=== PATIENT | male | born 1930 | race Caucasian/White ===

== ENCOUNTER 2020-02-28 00:05 | Inpatient (IN) | payer MEDICARE, BC ==
[~2020-02-28] VITALS: Ht 177.8 cm; Wt 149.7 kg
[2020-02-28] MEDS ORDERED: IV NORMAL SALINE 1000ML BAG 1,000 ML IV ONE ×2 (00:15)
--- NOTE | 2020-02-28 00:42 | RAD ---
Single view chest dated 02/28/2020. No comparison available. CLINICAL INDICATION: Shortness of breath. FINDINGS: Single upright portable exam performed. Heart size is moderately enlarged. Tortuosity of the thoracic aorta. Lungs are hypoinflated and there is patchy and linear opacity at both lung bases. No pleural effusion. No pneumothorax. IMPRESSION: 1. Patchy bibasilar opacity, atelectasis versus early pneumonia. 2. Cardiomegaly with tortuosity and ectasia of the thoracic aorta. Electronically signed by: Gurjit Garza MD (02/28/2020 12:40 AM) JANET
--- NOTE | 2020-02-28 01:02 | PHYS DOC ---
General Adult EDM: Chief Complaint: ALTERED MENTAL STATUS HPI: HPI: 89-year-old male past medical history significant for LE swelling (on lasix 40mg tid), COPD (former tobacco use), HTN, HLD, gerd, glaucoma, carotid stenosis (no cea), R eye blindness (s/p CRAO), OA, and myasthenia gravis (on azathioprine, dx 2016), presents to the ED brought in by EMS from home, concern for altered mental status. Patient lives with his son and [id number]. Son tested positive for Covid 11 days ago. [id number] is having Covid symptoms and was tested today, now awaiting results. Patient was saturating 90% on room air, required 3 L nasal cannula. Patient is alert to self, month, location but not year (states "forty, [age]"). Pt with no active complaints in ed. Hx limited due to mental status and hearing difficulties. EMS reports they were out at patient's house earlier in the day for an accidental fall in the bathroom, unsure if pt hit his head (found back propped up next to tub), w/superficial skin tears to left arm. Pt is a DNR code status. I spoke with pts' daughter, Aleta Randall on phone who provided most of the above information. Pts' last known well was yesterday. Pt was saying "I need a 38 and a 13," while making the sign of a cross. No known h/o enlarged aorta. Daughter reports no h/o intubations, not aware of any enlarged aorta. Last hospitalization was 2016 at [facility] when he was diagnosed with MG-why feeding tube was placed. Pt has chronic exertional dyspnea. Review of Systems: Review of Systems: Constitutional: Denies fever or chills, lack of taste/smell Eyes: Denies change in visual acuity or red eye HENT: Denies nasal congestion or sore throat. [] Respiratory: Denies cough or shortness of breath. [] Cardiovascular: Denies chest pain or edema. [] GI: Deniesnausea, vomiting, or diarrhea. [] : Denies dysuria or hematuria Musculoskeletal: Denies back pain or joint pain. [] Integument: Denies rash or crepitus Neurologic: Denies headache, neck stiffness, focal weakness or sensory changes. [] Endocrine: Denies polyuria or polydipsia. [] Psychiatric: Denies depression or anxiety. [] Heart Score: Risk Factors: Risk Factors: DM, Current or recent (<one month) smoker, HTN, HLP, family history of CAD, obesity. Risk Scores: Score 0 - 3: 2.5% MACE over next 6 weeks - Discharge Home Score 4 - 6: 20.3% MACE over next 6 weeks - Admit for Clinical Observation Score 7 - 10: 72.7% MACE over next 6 weeks - Early Invasive Strategies Current Medications: Current Medications Medications (Trade) Dose Ordered Sig/Nicola Start Time Stop Time Status Last Admin Dose Admin Sodium Chloride 1,000 ml @ 1,000 mls/hr 1X ONCE 02/28/20 00:15 02/28/20 01:14 Allergies: Allergies: Allergies Coded Allergies Type Severity Reaction Last Updated Verified Unable to Assess 02/28/20 No Physical Exam: PE: Constitutional: no acute distress, non-toxic appearance, very hard of hearing, afebrile HENT: Normocephalic, atraumatic, Eyes: EOMI, conjunctiva normal, no discharge. Neck: Normal range of motion, supple, Cardiovascular: S1/2 present, regular rhythm Lungs & Thorax: Speaking in full sentences, bilateral equal chest rise, no tachypnea or increased work of breathing, 96% on 3LNC Abdomen: soft, no tenderness, obese, G-tube in place Skin: Warm, dry, bl LE edema with venous stasis Back: No tenderness, no CVA tenderness. [] Extremities: no cyanosis, skin tears over left arm Neurologic: GCS14, alert to name, month, place not year, normal motor function, normal sensory function, no focal deficits noted. [] Psychologic: Affect normal, judgement normal, mood normal EKG: EKG: Sinus rhythm at 97 bpm, left axis deviation, OR 230, QTC 454, first-degree AV block, no T wave inversions, no ST elevations or ST depressions, inferior Q waves Radiology/Procedures: Radiology/Procedures: IMAGING REPORT Signed PATIENT: ALISTAIR EPPSOUNT: [id number] : 1930 LOCATION: ER AGE: 89 SEX: M EXAM STATUS: PRE ER ORD. PHYSICIAN: ZULAY POSADA DO REASON: soa PROCEDURE: PORTABLE CHEST 1V Single view chest dated 02/28/2020. No comparison available. CLINICAL INDICATION: Shortness of breath. FINDINGS: Single upright portable exam performed. Heart size is moderately enlarged. Tortuosity of the thoracic aorta. Lungs are hypoinflated and there is patchy and linear opacity at both lung bases. No pleural effusion. No pneumothorax. IMPRESSION: 1. Patchy bibasilar opacity, atelectasis versus early pneumonia. 2. Cardiomegaly with tortuosity and ectasia of the thoracic aorta. Electronically signed by: Gurjit Garza MD (02/28/2020 12:40 AM) JU[facility]ANETTE DICTATED and SIGNED BY: GURJIT GARZA MD DATE: 02/28/20 [id number] IMAGING REPORT Signed PATIENT: ALISTAIR EPPSOUNT: [id number] : 1930 LOCATION: ER AGE: 89 SEX: M EXAM STATUS: REG ER ORD. PHYSICIAN: ZULAY POSADA DO REASON: ams PROCEDURE: CT HEAD WO CONTRAST CT head without contrast dated 02/28/2020. No comparison available. CLINICAL INDICATION: Altered mental status. TECHNIQUE: Continues axial imaging the head was performed from skull base to vertex. No contrast administered. One or more of the following individualized dose reduction techniques were utilized for this examination: 1. Automated exposure control 2. Adjustment of the mA and/or kV according to patient size 3. Use of iterative reconstruction technique. FINDINGS: Ventricles and sulci are moderately prominent for age. No midline shift or mass effect. Moderate patchy low density in the deep/subcortical periventricular white matter. No hemorrhage or extra-axial collection. Posterior fossa and brainstem unremarkable. Mild mucosal thickening of the bilateral ethmoid air cells. The visualized paranasal sinuses and mastoid air cells are otherwise clear. No apparent calvarial abnormality. IMPRESSION: 1. No evidence of acute intracranial hemorrhage or mass. 2. Moderate chronic small vessel ischemic changes and atrophy. 3. Mild sinus disease. Electronically signed by: Gurjit Garza MD (02/28/2020 1:29 AM) [facility] DICTATED and SIGNED BY: GURJIT GARAZ MD DATE: 02/28/20 [id number] IMAGING REPORT Signed PATIENT: ALISTAIR EPPSOUNT: [id number] : 1930 LOCATION: ER AGE: 89 SEX: M EXAM STATUS: REG ER ORD. PHYSICIAN: ZULAY POSADA DO REASON: soa, r/o pe PROCEDURE: CT ANGIOGRAPHY CHEST CTA chest with contrast dated 02/28/2020. No comparison available. CLINICAL INDICATION: Shortness of breath. Possible pulmonary embolus. TECHNIQUE: Contiguous axial imaging the chest performed following the intravenous administration of intravenous Isovue-370. Study was performed as dedicated PE protocol with thin cut coronal MIPS 3-D reconstruction. One or more of the following individualized dose reduction techniques were utilized for this examination: 1. Automated exposure control 2. Adjustment of the mA and/or kV according to patient size 3. Use of iterative reconstruction technique FINDINGS: Contrast bolus is adequate. No evidence of central, lobar or segmental pulmonary embolus. Subsegmental branches are not well evaluated based on technique. Heart size is mildly enlarged. No pericardial effusion. Coronary artery calcifications. There is mild aneurysmal dilation of the ascending thoracic aorta measuring 4 cm transverse. No mediastinal, hilar or axillary lymphadenopathy. Thyroid gland unremarkable. Central airways are patent. There are irregular linear peripheral opacities throughout both lungs, basilar predominant. Intermixed patchy groundglass opacity bilaterally. No consolidation. No significant pleural effusion. No pneumothorax. Images of the upper abdomen are unremarkable. There are low-density foci at the upper pole of each kidney that are indeterminate but probably represent cysts. Percutaneous gastric tube in place. No acute bony abnormality. Multilevel spondylosis. IMPRESSION: 1. No evidence of central, lobar or segmental pulmonary embolus. 2. Prominent interstitial markings with intermixed groundglass opacity, nonspecific. This could be related to low-grade edema or interstitial fibrosis. Atypical infection considered less likely. 3. Coronary artery calcifications and mild aneurysmal dilation of the ascending thoracic aorta. Electronically signed by: Gurjit Garza MD (02/28/2020 2:40 AM) [facility] DICTATED and SIGNED BY: GURJIT GARZA MD DATE: 02/28/20 [id number] Course & Med Decision Making: Course & Med Decision Making Pertinent Labs and Imaging studies reviewed. (See chart for details) Concern for hypoxia in a male with multiple comorbidities, likely covid, test pending. Requiring NC. Influenza negative. Patient afebrile with no leukocytosis. Chest x-ray concerning for pneumonia. CTA showing ectatic thoracic aorta with no pulmonary emboli. Will admit for further medical management. Daughter agrees with this plan and aware he likely has covid, guarded condition. I have spoken with the patient and/or caregivers. I have explained the p atient's condition, diagnosis and treatment plan based on the information available to me at this time. I have answered the patient's and/or caregivers questions and answered any concerns. The patient and/or caregivers have as good an understanding of the patient's diagnosis, condition and treatment plan as can be expected at this point. The patient has been stabilized within the capability of the emergency department. The patient will be transported for further care and management or will be moved to an observation or inpatient service. I have communicated with the staff or medical practitioner taking over this patient's care. Selena Disclaimer: Selena Disclaimer: This electronic medical record was generated, in whole or in part, using a voice recognition dictation system. Departure Departure Impression: Primary Impression: AMS (altered mental status) Additional Impressions: Person under investigation for COVID-19 Acute respiratory failure with hypoxia CAP (community acquired pneumonia) Disposition: 09 ADMITTED INPT THIS HOSP Admitting Physician: SOURAV (Dr. Cortez) Condition: GUARDED Referrals: NO PCP (PCP) ZULAY POSADA DO Feb 28, 2020 01:02
[2020-02-28 01:10] LABS: BASO % 0 % (0-3); EOS % 0 % (0-3); HEMATOCRIT 42.4 % (39.0-53.0); HEMOGLOBIN 14.5 g/dL (13.0-17.5); LYMPH # 0.3 x10^3/uL (1.0-4.8); LYMPH % 5 % (24-48); MEAN CORPUSCULAR HEMOGLOBIN 30 pg (25-35); MEAN CORPUSCULAR HGB CONC 34 g/dL (31-37); MEAN CORPUSCULAR VOLUME 89 fL (79-100); MONO # 0.7 x10^3/uL (0.0-1.1); MONO % 11 % (0-9); NEUT # 5.5 x10^3/uL (1.8-7.7); NEUT % 84 % (31-73); PLATELET COUNT 167 x10^3/uL (140-400); RED BLOOD COUNT 4.78 x10^6/uL (4.30-5.70); RED CELL DISTRIBUTION WIDTH 16.5 % (11.5-14.5); WHITE BLOOD COUNT 6.6 x10^3/uL (4.0-11.0)
[2020-02-28] MEDS ORDERED: AZITHRMYCN 500MG IVPB FOR OMNI 250 ML IV ONE (01:15)
[2020-02-28] MEDS ORDERED: DEXAMETHASONE SOD PHOS 20 MG/5 ML VIAL. IV ONE (01:15)
[2020-02-28] MEDS ORDERED: cefTRIAXone IV Push 1 GM VIAL. IVP ONE (01:15)
[2020-02-28 01:25] LABS: INFLUENZA A PATIENT NEGATIVE (NEGATIVE); INFLUENZA B PATIENT NEGATIVE (NEGATIVE)
[2020-02-28 01:30] LABS: ALBUMIN 3.4 g/dL (3.4-5.0); ALBUMIN/GLOBULIN RATIO 0.8 (1.0-1.7); CALCIUM 8.5 mg/dL (8.5-10.1); CREATININE 1.1 mg/dL (0.7-1.3); GFR 63.2; POTASSIUM 3.4 mmol/L (3.5-5.1); TOTAL BILIRUBIN 0.5 mg/dL (0.2-1.0); TOTAL PROTEIN 7.5 g/dL (6.4-8.2)
--- NOTE | 2020-02-28 01:31 | RAD ---
CT head without contrast dated 02/28/2020. No comparison available. CLINICAL INDICATION: Altered mental status. TECHNIQUE: Continues axial imaging the head was performed from skull base to vertex. No contrast administered. One or more of the following individualized dose reduction techniques were utilized for this examinat ion: 1. Automated exposure control 2. Adjustment of the mA and/or kV according to patient size 3. Use of iterative reconstruction technique. FINDINGS: Ventricles and sulci are moderately prominent for age. No midline shift or mass effect. Moderate patc hy low density in the deep/subcortical periventricular white matter. No hemorrhage or extra-axial col lection. Posterior fossa and brainstem unremarkable. Mild mucosal thickening of the bilateral ethmoid air cells. The visualized paranasal sinuses and mast oid air cells are otherwise clear. No apparent calvarial abnormality. IMPRESSION: 1. No evidence of acute intracranial hemorrhage or mass. 2. Moderate chronic small vessel ischemic changes and atrophy. 3. Mild sinus disease. Electronically signed by: Gurjit Garza MD (02/28/2020 1:29 AM) ZORAIDA
[2020-02-28 01:32] LABS: PROTHROMBIN TIME PATIENT 14.2 SEC (11.7-14.0)
[2020-02-28 02:07] LABS: BASE EXCESS ABG 2 mmol/L (-3-3); HCO3 ABG 25 mmol/L (21-28); PCO2 ABG 37 mmHg (35-46); PO2 ABG 103 mmHg (65-108); SAT O2 ABG 98 % (92-99)
[2020-02-28 02:08] LABS: FIO2 ABG 36
[2020-02-28] MEDS ORDERED: CONTRAST GIVEN. MC PRN (02:15)
[2020-02-28] MEDS ORDERED: IOHEXOL 350 MG/ML 100 ML VIAL. IV ONE (02:15)
--- NOTE | 2020-02-28 02:42 | RAD ---
CTA chest with contrast dated 02/28/2020. No comparison available. CLINICAL INDICATION: Shortness of breath. Possible pulmonary embolus. TECHNIQUE: Contiguous axial imaging the chest performed following the intravenous administration of intravenous Isovue-370. Study was performed as dedicated PE protocol with thin cut coronal MIPS 3-D reconstructio n. One or more of the following individualized dose reduction techniques were utilized for this examinat ion: 1. Automated exposure control 2. Adjustment of the mA and/or kV according to patient size 3. Use of iterative reconstruction technique FINDINGS: Contrast bolus is adequate. No evidence of central, lobar or segmental pulmonary embolus. Subsegmenta l branches are not well evaluated based on technique. Heart size is mildly enlarged. No pericardial effusion. Coronary artery calcifications. There is mild aneurysmal dilation of the ascending thoracic aorta measuring 4 cm transverse. No mediastinal, hilar or axillary lymphadenopathy. Thyroid gland unremarkable. Central airways are patent. There are irregular linear peripheral opacities throughout both lungs, ba silar predominant. Intermixed patchy groundglass opacity bilaterally. No consolidation. No significan t pleural effusion. No pneumothorax. Images of the upper abdomen are unremarkable. There are low-density foci at the upper pole of each ki dney that are indeterminate but probably represent cysts. Percutaneous gastric tube in place. No acut e bony abnormality. Multilevel spondylosis. IMPRESSION: 1. No evidence of central, lobar or segmental pulmonary embolus. 2. Prominent interstitial markings with intermixed groundglass opacity, nonspecific. This could be re lated to low-grade edema or interstitial fibrosis. Atypical infection considered less likely. 3. Coronary artery calcifications and mild aneurysmal dilation of the ascending thoracic aorta. Electronically signed by: Gurjit Garza MD (02/28/2020 2:40 AM) [facility]
[2020-02-28] MEDS ORDERED: DIPH,PERTUSS(ACELL),TET VAC/PF 0.5 ML SYRINGE. VAX IM ONE (03:00)
[2020-02-28] MEDS ORDERED: ACETAMINOPHEN 325 MG TABLET. PO PRN ×3 (03:15→17:30)
[2020-02-28] MEDS ORDERED: ONDANSETRON PF 4 MG/2 ML VIAL. IV PRN (03:15)
[2020-02-28 04:47] LABS: % BANDS 11 % (0-9); % LYMPHS 4 % (24-48); % MONOS 4 % (0-10); % SEGS 81 % (35-66); PLT ESTIMATE ADEQUATE (ADEQUATE)
[2020-02-28] MEDS ORDERED: ONDANSETRON PF 4 MG/2 ML VIAL. IVP PRN ×2 (06:15→17:30)
[2020-02-28] MEDS ORDERED: MAGNESIUM HYDROXIDE 2,400 MG/30 ML ORAL.SUSP. PO PRN (06:15)
[2020-02-28] MEDS ORDERED: CALCIUM CARBONATE 500 MG TAB.CHEW PO PRN (06:15)
[2020-02-28] MEDS ORDERED: MAG HYDROX/ALUMINUM HYD/SIMETH 30 ML ORAL.SUSP PO PRN (06:15)
[2020-02-28] MEDS ORDERED: MORPHINE SULFATE 2 MG/ML VIAL. IV PRN (06:15)
[2020-02-28] MEDS ORDERED: BISACODYL 10 MG SUPP.RECT. PR PRN (06:15)
[2020-02-28] MEDS ORDERED: traMADol 50 MG TABLET PO PRN (06:15)
[2020-02-28] MEDS ORDERED: ZOLPIDEM 5 MG TABLET. PO PRN (06:15)
[2020-02-28] MEDS: ENOXAPARIN 40 MG/0.4 ML SYRINGE. SQ SCH (06:30)
[2020-02-28 08:59] VITALS: BP 178/86
--- NOTE | 2020-02-28 09:05 | PDOC1 ---
History and Physical Date of Service: DOS: DATE: 02/28/20 TIME: 09:00 Chief Complaint: Chief Complain: altered mental status History of Present Illness: HPI: 89-year-old male past medical history significant for LE swelling on lasix 40mg tid, COPD (former tobacco use), HTN, HLD, gerd, glaucoma, R eye blindness (s/p CRAO), OA, and myasthenia gravis (on azathioprine, dx 2016), presents to the ED brought in by EMS from home, concern for altered mental status. Patient lives with his son and umvxppjr-pf-rwj. Son tested positive for Covid 11 days ago. Tmwakytc-pa-zhg is having Covid symptoms and was tested today, now awaiting results. Patient was saturating 90% on room air, required 3 L nasal cannula. Patient is alert to self, month, location but not year. Pt with no active complaints in ed. Hx limited due to mental status and hearing difficulties. EMS reports they were out at patient's house earlier in the day for an accidental fall in the bathroom, unsure if pt hit his head (found back propped up next to tub), w/superficial skin tears to left arm. Pt is a DNR code status. Patient's daughter, Aleta Randall, provided most of the above information. Pts' last known well was yesterday. Pt was saying "I need a 38 and a 13," while making the sign of a cross. No known h/o enlarged aorta. Daughter reports no h/o intubations, not aware of any enlarged aorta. Last hospitalization was 2016 at [facility] when he was diagnosed with MG-that's why feeding tube was placed. Pt has chronic exertional dyspnea. Past Medical/Surgical History: PMH/PSH: PMHx :myasthenia gravis on azathioprine treatment COPD, hypertension, dyslipidemia, GERD, glaucoma, osteoarthritis Past surgical history: PEG tube placement Allergies: Allergies: Coded Allergies: No Known Drug Allergies (Unverified , 02/28/20) Family History: Family History: Reviewed with no relevant findings Social History: Social History: Former smoker Current Medications: Current Medications Current Medications Sodium Chloride 1,000 ml @ 1,000 mls/hr 1X ONCE IV Last administered on 02/28/20at 00:55; Start 02/28/20 at 00:15; Stop 02/28/20 at 01:14; Status DC Sodium Chloride 1,000 ml @ 1,000 mls/hr 1X ONCE IV Last administered on 02/28/20at 00:56; Start 02/28/20 at 00:15; Stop 02/28/20 at 01:14; Status DC Ceftriaxone Sodium (Rocephin) 1 gm 1X ONCE IVP Last administered on 02/28/20at 02:05; Start 02/28/20 at 01:15; Stop 02/28/20 at 01:16; Status DC Azithromycin 250 ml @ 250 mls/hr 1X ONCE IV Last administered on 02/28/20at 02:05; Start 02/28/20 at 01:15; Stop 02/28/20 at 02:14; Status DC Dexamethasone Sodium Phosphate (Decadron) 10 mg 1X ONCE IV Last administered on 02/28/20at 02:05; Start 02/28/20 at 01:15; Stop 02/28/20 at 01:16; Status DC Iohexol (Omnipaque 350 Mg/ml) 100 ml 1X ONCE IV Last administered on 02/28/20at 02:31; Start 02/28/20 at 02:15; Stop 02/28/20 at 02:16; Status DC Info (CONTRAST GIVEN -- Rx MONITORING) 1 each PRN DAILY PRN MC SEE COMMENTS; Start 02/28/20 at 02:15; Stop 03/01/20 at 02:14 Diphtheria/ Tetanus/Acell Pertussis (ADACEL TDap SYRINGE) 0.5 ml ONCE ONCE VAX IM Last administered on 02/28/20at 05:12; Start 02/28/20 at 03:00; Stop 02/28/20 at 03:01; Status DC Ondansetron HCl (Zofran) 4 mg PRN Q8HRS PRN IV NAUSEA/VOMITING; Start 02/28/20 at 03:15; Stop 02/29/20 at 03:14 Acetaminophen (Tylenol) 650 mg PRN Q4HRS PRN PO FEVER > 100.3'F; Start 02/28/20 at 03:15; Stop 02/28/20 at 06:36; Status DC Doxycycline Hyclate 100 mg/ Dextrose 100 ml @ 50 mls/hr Q12HR IV ; Start 02/29/20 at 09:00 Dexamethasone Sodium Phosphate (Decadron) 6 mg DAILY IVP ; Start 02/29/20 at 09:00 Ascorbic Acid (Vitamin C) 500 mg BID PO ; Start 02/28/20 at 09:00; Stop 03/13/20 at 08:59 Zinc Sulfate (Orazinc) 220 mg DAILY PO ; Start 02/28/20 at 09:00; Stop 03/13/20 at 08:59 Vitamin D (Vitamin D3) 5,000 unit DAILY PO ; Start 02/28/20 at 09:00; Stop 03/13/20 at 08:59 Ondansetron HCl (Zofran) 4 mg PRN Q6HRS PRN IVP NAUSEA/VOMITING; Start 02/28/20 at 06:15 Al Hydroxide/Mg Hydroxide (Mylanta Plus Xs) 30 ml PRN Q3HRS PRN PO HEARTBURN / GAS; Start 02/28/20 at 06:15 Calcium Carbonate/ Glycine (Tums) 500 mg PRN Q3HRS PRN PO UPSET STOMACH; Start 02/28/20 at 06:15 Zolpidem Tartrate (Ambien) 5 mg PRN QHS PRN PO INSOMNIA, MAY REPEAT IN 1HR; Start 02/28/20 at 06:15 Morphine Sulfate (Morphine Sulfate) 2 mg PRN Q1HR PRN IV PAIN; Start 02/28/20 at 06:15 Acetaminophen (Tylenol) 650 mg PRN Q6HRS PRN PO Headaches, Temp > 101.5F; Start 02/28/20 at 06:15 Magnesium Hydroxide (Milk Of Magnesia) 2,400 mg PRN Q12HR PRN PO CONSTIPATION; Start 02/28/20 at 06:15 Bisacodyl (Dulcolax Supp) 10 mg PRN DAILY PRN CA CONSTIPATION; Start 02/28/20 at 06:15 Enoxaparin Sodium (Lovenox 40mg Syringe) 40 mg Q24H SQ ; Start 02/28/20 at 06:30 Tramadol HCl (Ultram) 50 mg PRN Q6HRS PRN PO PAIN; Start 02/28/20 at 06:15 ROS: Review of Systems Review of System REVIEW OF SYSTEMS: GENERAL: Denies weakness SKIN: No bruising, hair changes or rashes. EYES: No blurred, double or loss of vision. NOSE AND THROAT: No history of nosebleeds, hoarseness or sore throat. HEART: No history of palpitations, chest pain or shortness of breath on exertion. LUNGS: Denies cough, hemoptysis, wheezing or shortness of breath. GASTROINTESTINAL: Denies changes in appetite, nausea, vomiting, diarrhea or constipation. GENITOURINARY: No history of frequency, urgency, hesitancy or nocturia. NEUROLOGIC: Denies history of numbness, tingling, or tremor. PSYCHIATRIC: No history of panic, anxiety or depression. ENDOCRINE: No history of heat or cold intolerance, polyuria or polydipsia. EXTREMITIES: Denies joint pain, pain on walking or stiffness. Physical Exam: Vital Signs: Vital Signs Date Time Temp Pulse Resp B/P (MAP) Pulse Ox O2 Delivery O2 Flow Rate FiO2 02/28/20 06:36 88 18 94 02/28/20 04:01 99.7 99.7 02/28/20 00:15 155/84 (107) Nasal Cannula 3.0 Physcial Exam: GEN: No apparent distress. Alert and oriented HEENT: Normal cephalic, atraumatic, external auditory canals are patent EYES: Extraocular muscles are intact, pupil are equally round and reactive to light and accommodation MUSCULOSKELETAL: Well developed , well nourished, good range of motion ENDOCRINE: No thyromegaly was palpated LYMPHATICS: No cervical chain or axillary nodes were noted HEMATOPOIETIC: No bruising NECK: Supple, no JVD, no thyromegaly was noted LUNGS: Clear to auscultation in all lung adame without rhonchi or wheezing HEART: RRR, S!, S2 present. Peripheral pulses intact, no obvious murmurs noted ABDOMEN: Soft, nontender. Positive bowel sounds, no organomegaly, normal bowel sounds EXTREMITIES: Without clubbing, cyanosis, or edema. Pedal pulses intact. Negative Homans sign NEUROLOGIC: Normal speech and tone. A&O x 3, moves all extremities, no obvious focal deficits PSYCHIATRIC: Normal affect, normal mood. Stable SKIN: No ulcerations or rashes, good skin turgor, no jaundice VASCULAR: Good capillary refill, neurovascular bundle appears to be intact Labs: Labs: Laboratory Tests Test 02/28/20 00:37 02/28/20 00:52 02/28/20 02:00 Influenza Type A Antigen Negative (NEGATIVE) Influenza Type B Antigen Negative (NEGATIVE) White Blood Count 6.6 x10^3/uL (4.0-11.0) Red Blood Count 4.78 x10^6/uL (4.30-5.70) Hemoglobin 14.5 g/dL (13.0-17.5) Hematocrit 42.4 % (39.0-53.0) Mean Corpuscular Volume 89 fL (79-100) Mean Corpuscular Hemoglobin 30 pg (25-35) Mean Corpuscular Hemoglobin Concent 34 g/dL (31-37) Red Cell Distribution Width 16.5 % (11.5-14.5) Platelet Count 167 x10^3/uL (140-400) Neutrophils (%) (Auto) 84 % (31-73) Lymphocytes (%) (Auto) 5 % (24-48) Monocytes (%) (Auto) 11 % (0-9) Eosinophils (%) (Auto) 0 % (0-3) Basophils (%) (Auto) 0 % (0-3) Neutrophils # (Auto) 5.5 x10^3/uL (1.8-7.7) Lymphocytes # (Auto) 0.3 x10^3/uL (1.0-4.8) Monocytes # (Auto) 0.7 x10^3/uL (0.0-1.1) Eosinophils # (Auto) 0.0 x10^3/uL (0.0-0.7) Basophils # (Auto) 0.0 x10^3/uL (0.0-0.2) Segmented Neutrophils % 81 % (35-66) Band Neutrophils % 11 % (0-9) Lymphocytes % 4 % (24-48) Monocytes % 4 % (0-10) Platelet Estimate Adequate (ADEQUATE) Prothrombin Time 14.2 SEC (11.7-14.0) Prothromb Time International Ratio 1.1 (0.8-1.1) Activated Partial Thromboplast Time 39 SEC (24-38) D-Dimer (Farheen) 2.73 ug/mlFEU (0.00-0.50) Sodium Level 131 mmol/L (136-145) Potassium Level 3.4 mmol/L (3.5-5.1) Chloride Level 91 mmol/L (98-107) Carbon Dioxide Level 28 mmol/L (21-32) Anion Gap 12 (6-14) Blood Urea Nitrogen 15 mg/dL (8-26) Creatinine 1.1 mg/dL (0.7-1.3) Estimated GFR (Cockcroft-Gault) 63.2 BUN/Creatinine Ratio 14 (6-20) Glucose Level 111 mg/dL (70-99) Lactic Acid Level 1.2 mmol/L (0.4-2.0) Calcium Level 8.5 mg/dL (8.5-10.1) Total Bilirubin 0.5 mg/dL (0.2-1.0) Aspartate Amino Transf (AST/SGOT) 29 U/L (15-37) Alanine Aminotransferase (ALT/SGPT) 26 U/L (16-63) Alkaline Phosphatase 110 U/L (46-116) Creatine Kinase 266 U/L (39-308) Troponin I Quantitative < 0.017 ng/mL (0.000-0.055) BO-Kce-Z-Type Natriuretic Peptide 362 pg/mL (0-449) Total Protein 7.5 g/dL (6.4-8.2) Albumin 3.4 g/dL (3.4-5.0) Albumin/Globulin Ratio 0.8 (1.0-1.7) O2 Saturation 98 % (92-99) Arterial Blood pH 7.45 (7.35-7.45) Arterial Blood pCO2 at Patient Temp 37 mmHg (35-46) Arterial Blood pO2 at Patient Temp 103 mmHg (65-108) Arterial Blood HCO3 25 mmol/L (21-28) Arterial Blood Base Excess 2 mmol/L (-3-3) FiO2 36 Laboratory Tests Test 02/28/20 00:37 02/28/20 00:52 02/28/20 02:00 Influenza Type A Antigen Negative (NEGATIVE) Influenza Type B Antigen Negative (NEGATIVE) White Blood Count 6.6 x10^3/uL (4.0-11.0) Red Blood Count 4.78 x10^6/uL (4.30-5.70) Hemoglobin 14.5 g/dL (13.0-17.5) Hematocrit 42.4 % (39.0-53.0) Mean Corpuscular Volume 89 fL (79-100) Mean Corpuscular Hemoglobin 30 pg (25-35) Mean Corpuscular Hemoglobin Concent 34 g/dL (31-37) Red Cell Distribution Width 16.5 % (11.5-14.5) Platelet Count 167 x10^3/uL (140-400) Neutrophils (%) (Auto) 84 % (31-73) Lymphocytes (%) (Auto) 5 % (24-48) Monocytes (%) (Auto) 11 % (0-9) Eosinophils (%) (Auto) 0 % (0-3) Basophils (%) (Auto) 0 % (0-3) Neutrophils # (Auto) 5.5 x10^3/uL (1.8-7.7) Lymphocytes # (Auto) 0.3 x10^3/uL (1.0-4.8) Monocytes # (Auto) 0.7 x10^3/uL (0.0-1.1) Eosinophils # (Auto) 0.0 x10^3/uL (0.0-0.7) Basophils # (Auto) 0.0 x10^3/uL (0.0-0.2) Segmented Neutrophils % 81 % (35-66) Band Neutrophils % 11 % (0-9) Lymphocytes % 4 % (24-48) Monocytes % 4 % (0-10) Platelet Estimate Adequate (ADEQUATE) Prothrombin Time 14.2 SEC (11.7-14.0) Prothromb Time International Ratio 1.1 (0.8-1.1) Activated Partial Thromboplast Time 39 SEC (24-38) D-Dimer (Farheen) 2.73 ug/mlFEU (0.00-0.50) Sodium Level 131 mmol/L (136-145) Potassium Level 3.4 mmol/L (3.5-5.1) Chloride Level 91 mmol/L (98-107) Carbon Dioxide Level 28 mmol/L (21-32) Anion Gap 12 (6-14) Blood Urea Nitrogen 15 mg/dL (8-26) Creatinine 1.1 mg/dL (0.7-1.3) Estimated GFR (Cockcroft-Gault) 63.2 BUN/Creatinine Ratio 14 (6-20) Glucose Level 111 mg/dL (70-99) Lactic Acid Level 1.2 mmol/L (0.4-2.0) Calcium Level 8.5 mg/dL (8.5-10.1) Total Bilirubin 0.5 mg/dL (0.2-1.0) Aspartate Amino Transf (AST/SGOT) 29 U/L (15-37) Alanine Aminotransferase (ALT/SGPT) 26 U/L (16-63) Alkaline Phosphatase 110 U/L (46-116) Creatine Kinase 266 U/L (39-308) Troponin I Quantitative < 0.017 ng/mL (0.000-0.055) HR-Egz-R-Type Natriuretic Peptide 362 pg/mL (0-449) Total Protein 7.5 g/dL (6.4-8.2) Albumin 3.4 g/dL (3.4-5.0) Albumin/Globulin Ratio 0.8 (1.0-1.7) O2 Saturation 98 % (92-99) Arterial Blood pH 7.45 (7.35-7.45) Arterial Blood pCO2 at Patient Temp 37 mmHg (35-46) Arterial Blood pO2 at Patient Temp 103 mmHg (65-108) Arterial Blood HCO3 25 mmol/L (21-28) Arterial Blood Base Excess 2 mmol/L (-3-3) FiO2 36 Images: Images CXR IMPRESSION: 1. Patchy bibasilar opacity, atelectasis versus early pneumonia. 2. Cardiomegaly with tortuosity and ectasia of the thoracic aorta. HEAD CT IMPRESSION: 1. No evidence of acute intracranial hemorrhage or mass. 2. Moderate chronic small vessel ischemic changes and atrophy. 3. Mild sinus disease. CHEST CTA IMPRESSION: 1. No evidence of central, lobar or segmental pulmonary embolus. 2. Prominent interstitial markings with intermixed groundglass opacity, nonspecific. This could be related to low-grade edema or interstitial fibrosis. Atypical infection considered less likely. 3. Coronary artery calcifications and mild aneurysmal dilation of the ascending thoracic aorta. Assessment/Plan Assessment/Plan Acute encephalopathy NOS PUI for COVID Acute hypoxic respiratory distress Hyponatremia, Hypokalemia Myasthenia Gravis No obvious centrally acting medications currently. No obvious signs of infection on physical exam. No fevers or nuchal rigidity. CT head is negative for acute etiology. No history or signs of trauma Consider dementia prevention protocol Provide adequate lighting (open curtains during the day, turn the lights off at night) Provide frequent personal contact with family, friends, and staff or TV Encourage early and frequent mobilization Rehab screening ordered IV Haldol as needed for agitation, consider sitter as needed if non-redirectable agitation Avoid physical restraints, catheters or tubes, and benzodiazepines Nutrition consult if there is malnutrition or concern for vitamin deficiencies Continue IV fluids Pulmonology consult for Covid PNA Lovenox for DVT prophylaxis [] GI prophylaxis ADA diet Full code Discussed with RN and SW Dispo Justifications for Admission Other Justification Respiratory failure with hypoxia, COVID-19 PNA [place] PETTIT MD Feb 28, 2020 09:05
[2020-02-28] MEDS: ASCORBIC ACID 500 MG TABLET PO SCH ×2 (10:31→22:32)
[2020-02-28] MEDS: ZINC SULFATE 220 MG CAPSULE. PO SCH (10:31)
[2020-02-28] MEDS: CHOLECALCIFEROL (VITAMIN D3) 5,000 UNIT CAPSULE PO SCH (10:31)
[2020-02-28 11:27] VITALS: BP 151/72
--- NOTE | 2020-02-28 11:42 | CONS ---
DATE OF CONSULTATION: PULMONARY CONSULTATION ATTENDING PHYSICIAN: Dr. Alex Cortez. REASON FOR CONSULTATION: Dyspnea, respiratory failure. HISTORY OF PRESENT ILLNESS: The patient is an 89-year-old male with a BMI of 47. He denies any tobacco history recently, but a former tobacco user. He was brought into the hospital with complaint of some altered mental status as well as dyspnea and hypoxia. The patient has history of myasthenia gravis for which he is on azathioprine. He lives with his son and [id number]-[id number]. Son tested positive for COVID 11 days ago. Opdvcxun-iz-ros was also having COVID symptoms and was tested today, results are not available. The patient is being currently on 3 liters nasal cannula. He does not appear to be in any obvious respiratory distress. He does have a cough. No chest pain, no nausea, vomiting, no diarrhea, no dysuria. No focal weakness. CT of the chest was reviewed by me. This was done for pulmonary embolism protocol. There was no evidence of any major pulmonary emboli. There is evidence of prominent interstitial markings with some mixed ground glass opacities. There is no old x-ray available for comparison. I have been asked to see him for further evaluation. COVID test is pending. PAST MEDICAL HISTORY: Significant for myasthenia gravis, on azathioprine, questionable COPD, history of obesity, GERD, glaucoma, osteoarthritis. PAST SURGICAL HISTORY: History of PEG tube placement. ALLERGIES: None. FAMILY HISTORY: Noncontributory to lungs. ALLERGIES: None. MEDICATIONS: Reviewed as listed in the MRAD including dexamethasone, doxycycline. Lovenox for DVT prophylaxis. PHYSICAL EXAMINATION: On examination, he is in no obvious respiratory distress. T-max of 99.7. Blood pressure 178/86, pulse ox 99%. Visual exam done due to COVID-19. He is obese and has trace pitting edema. LABORATORY DATA: Reviewed. Influenza screen is negative. BUN 15, creatinine 1.1. D-dimer 2.7. ABGs with a pO2 of 103 on 36% FiO2. IMPRESSION: 1. Acute hypoxic respiratory failure secondary to multifactorial etiologies and likely COVID-19 pneumonia. He lives with his son and [id number] and they are positive. Other differential diagnosis would include the possibility of congestive heart failure versus underlying interstitial lung disease related to Methotrexate. 2. Abnormal CT chest with bilateral interstitial infiltrates and some ground glass infiltrates. This is nonspecific, but in the setting of COVID-19 infection, this could be all related to COVID. Will benefit from a followup chest x-ray and CT chest post treatment. 3. No evidence of pulmonary embolism. 4. Questionable chronic obstructive pulmonary disease. 5. Morbid obesity, suspected obstructive sleep apnea and obesity hypoventilation syndrome. RECOMMENDATIONS: 1. Continue with present oxygen. Keep saturation 92 and above. 2. Dexamethasone. 3. Doxycycline. 4. Lovenox for DVT prophylaxis. 5. Follow up chest x-ray as needed clinically. 6. May benefit from a followup CT chest in 6-8 weeks. 7. The patient is currently on methotrexate. Possibility of methotrexate-induced interstitial lung disease cannot be ruled out. 8. Rule out COVID-[address]: LILLY/yola JOB#: [id number] / [id number] LAYO
[2020-02-28] MEDS ORDERED: BRIM5DRO4 OS (12:35)
[2020-02-28] MEDS ORDERED: FURO40TA4 PO (12:35)
[2020-02-28] MEDS ORDERED: ASPI-630 PO (12:35)
[2020-02-28] MEDS ORDERED: CARV6.2511 PO (12:35)
[2020-02-28] MEDS ORDERED: OMEG1CAP38 PO (12:35)
[2020-02-28] MEDS ORDERED: AZAT50TA20 PO (12:35)
[2020-02-28] MEDS ORDERED: SPIR100T4 PO (12:35)
[2020-02-28] MEDS ORDERED: LATA2.5D2 EACHEYE (12:35)
[2020-02-28] MEDS ORDERED: MULT-245 PO (12:35)
[2020-02-28] MEDS ORDERED: SIMV20TA18 PO (12:35)
[2020-02-28] MEDS ORDERED: AMLO-187 PO (12:35)
[2020-02-28] MEDS ORDERED: TIMO10DR5 OS (12:35)
[2020-02-28 15:14] VITALS: BP 204/76
[2020-02-28] MEDS ORDERED: DOCUSATE SODIUM 100 MG CAPSULE. PO PRN (17:30)
[2020-02-28] MEDS ORDERED: SENNOSIDES 8.6 MG TABLET PO PRN (17:30)
[2020-02-28] MEDS ORDERED: DEXTROSE 50% 25 GM / 50ML DISP.SYRIN. IV PRN (17:30)
[2020-02-28] MEDS ORDERED: ENOXAPARIN 40 MG/0.4 ML SYRINGE. SQ ONE (17:45)
[2020-02-28] MEDS: CARVEDILOL 6.25 MG TABLET. PO SCH (17:52)
[2020-02-28 19:00] VITALS: BP 166/74
[2020-02-28] MEDS: SIMVASTATIN 20 MG TABLET PO SCH (22:32)
[2020-02-28 23:00] VITALS: BP 173/77
[2020-02-29 03:00] VITALS: BP 170/81
[2020-02-29 05:42] LABS: BASO % 0 % (0-3); EOS % 0 % (0-3); HEMOGLOBIN 12.7 g/dL (13.0-17.5); LYMPH # 0.4 x10^3/uL (1.0-4.8); LYMPH % 5 % (24-48); MEAN CORPUSCULAR HEMOGLOBIN 30 pg (25-35); MEAN CORPUSCULAR HGB CONC 34 g/dL (31-37); MEAN CORPUSCULAR VOLUME 88 fL (79-100); MONO # 0.7 x10^3/uL (0.0-1.1); MONO % 9 % (0-9); NEUT # 6.6 x10^3/uL (1.8-7.7); NEUT % 85 % (31-73); PLATELET COUNT 150 x10^3/uL (140-400); RED BLOOD COUNT 4.22 x10^6/uL (4.30-5.70); WHITE BLOOD COUNT 7.7 x10^3/uL (4.0-11.0)
[2020-02-29 05:58] LABS: CALCIUM 8.4 mg/dL (8.5-10.1); CREATININE 0.9 mg/dL (0.7-1.3); GFR 79.6; MAGNESIUM 2.5 mg/dL (1.8-2.4); PHOSPHORUS 2.8 mg/dL (2.6-4.7); POTASSIUM 3.3 mmol/L (3.5-5.1)
[2020-02-29 07:00] VITALS: BP 174/81
[2020-02-29] MEDS: ENOXAPARIN 40 MG/0.4 ML SYRINGE. SQ SCH ×3 (07:12→20:42)
--- NOTE | 2020-02-29 08:25 | PDOC ---
PULMONARY PROGRESS NOTES DATE: 02/29/20 TIME: 08:24 Subjective no soa Vitals Vital Signs Date Time Temp Pulse Resp B/P (MAP) Pulse Ox O2 Delivery O2 Flow Rate FiO2 02/29/20 03:00 96.8 80 20 170/81 (110) 97 96.8 02/28/20 20:00 Nasal Cannula 4.0 General: Alert, No acute distress Lungs: Clear Cardiovascular: S1 Abdomen: Soft, Other (obese) Extremities: No Edema Skin: Warm Labs Laboratory Tests Test 02/28/20 00:37 02/28/20 00:52 02/28/20 02:00 02/29/20 04:30 Influenza Type A Antigen Negative (NEGATIVE) Influenza Type B Antigen Negative (NEGATIVE) White Blood Count 6.6 x10^3/uL (4.0-11.0) 7.7 x10^3/uL (4.0-11.0) Red Blood Count 4.78 x10^6/uL (4.30-5.70) 4.22 x10^6/uL (4.30-5.70) Hemoglobin 14.5 g/dL (13.0-17.5) 12.7 g/dL (13.0-17.5) Hematocrit 42.4 % (39.0-53.0) 37.0 % (39.0-53.0) Mean Corpuscular Volume 89 fL (79-100) 88 fL (79-100) Mean Corpuscular Hemoglobin 30 pg (25-35) 30 pg (25-35) Mean Corpuscular Hemoglobin Concent 34 g/dL (31-37) 34 g/dL (31-37) Red Cell Distribution Width 16.5 % (11.5-14.5) 16.0 % (11.5-14.5) Platelet Count 167 x10^3/uL (140-400) 150 x10^3/uL (140-400) Neutrophils (%) (Auto) 84 % (31-73) 85 % (31-73) Lymphocytes (%) (Auto) 5 % (24-48) 5 % (24-48) Monocytes (%) (Auto) 11 % (0-9) 9 % (0-9) Eosinophils (%) (Auto) 0 % (0-3) 0 % (0-3) Basophils (%) (Auto) 0 % (0-3) 0 % (0-3) Neutrophils # (Auto) 5.5 x10^3/uL (1.8-7.7) 6.6 x10^3/uL (1.8-7.7) Lymphocytes # (Auto) 0.3 x10^3/uL (1.0-4.8) 0.4 x10^3/uL (1.0-4.8) Monocytes # (Auto) 0.7 x10^3/uL (0.0-1.1) 0.7 x10^3/uL (0.0-1.1) Eosinophils # (Auto) 0.0 x10^3/uL (0.0-0.7) 0.0 x10^3/uL (0.0-0.7) Basophils # (Auto) 0.0 x10^3/uL (0.0-0.2) 0.0 x10^3/uL (0.0-0.2) Segmented Neutrophils % 81 % (35-66) Band Neutrophils % 11 % (0-9) Lymphocytes % 4 % (24-48) Monocytes % 4 % (0-10) Platelet Estimate Adequate (ADEQUATE) Prothrombin Time 14.2 SEC (11.7-14.0) Prothromb Time International Ratio 1.1 (0.8-1.1) Activated Partial Thromboplast Time 39 SEC (24-38) D-Dimer (Farheen) 2.73 ug/mlFEU (0.00-0.50) Sodium Level 131 mmol/L (136-145) 137 mmol/L (136-145) Potassium Level 3.4 mmol/L (3.5-5.1) 3.3 mmol/L (3.5-5.1) Chloride Level 91 mmol/L (98-107) 100 mmol/L (98-107) Carbon Dioxide Level 28 mmol/L (21-32) 29 mmol/L (21-32) Anion Gap 12 (6-14) 8 (6-14) Blood Urea Nitrogen 15 mg/dL (8-26) 14 mg/dL (8-26) Creatinine 1.1 mg/dL (0.7-1.3) 0.9 mg/dL (0.7-1.3) Estimated GFR (Cockcroft-Gault) 63.2 79.6 BUN/Creatinine Ratio 14 (6-20) Glucose Level 111 mg/dL (70-99) 115 mg/dL (70-99) Lactic Acid Level 1.2 mmol/L (0.4-2.0) Calcium Level 8.5 mg/dL (8.5-10.1) 8.4 mg/dL (8.5-10.1) Total Bilirubin 0.5 mg/dL (0.2-1.0) Aspartate Amino Transf (AST/SGOT) 29 U/L (15-37) Alanine Aminotransferase (ALT/SGPT) 26 U/L (16-63) Alkaline Phosphatase 110 U/L (46-116) Creatine Kinase 266 U/L (39-308) Troponin I Quantitative < 0.017 ng/mL (0.000-0.055) IT-Dbq-O-Type Natriuretic Peptide 362 pg/mL (0-449) Total Protein 7.5 g/dL (6.4-8.2) Albumin 3.4 g/dL (3.4-5.0) Albumin/Globulin Ratio 0.8 (1.0-1.7) O2 Saturation 98 % (92-99) Arterial Blood pH 7.45 (7.35-7.45) Arterial Blood pCO2 at Patient Temp 37 mmHg (35-46) Arterial Blood pO2 at Patient Temp 103 mmHg (65-108) Arterial Blood HCO3 25 mmol/L (21-28) Arterial Blood Base Excess 2 mmol/L (-3-3) FiO2 36 Phosphorus Level 2.8 mg/dL (2.6-4.7) Magnesium Level 2.5 mg/dL (1.8-2.4) Laboratory Tests Test 02/29/20 04:30 White Blood Count 7.7 x10^3/uL (4.0-11.0) Red Blood Count 4.22 x10^6/uL (4.30-5.70) Hemoglobin 12.7 g/dL (13.0-17.5) Hematocrit 37.0 % (39.0-53.0) Mean Corpuscular Volume 88 fL (79-100) Mean Corpuscular Hemoglobin 30 pg (25-35) Mean Corpuscular Hemoglobin Concent 34 g/dL (31-37) Red Cell Distribution Width 16.0 % (11.5-14.5) Platelet Count 150 x10^3/uL (140-400) Neutrophils (%) (Auto) 85 % (31-73) Lymphocytes (%) (Auto) 5 % (24-48) Monocytes (%) (Auto) 9 % (0-9) Eosinophils (%) (Auto) 0 % (0-3) Basophils (%) (Auto) 0 % (0-3) Neutrophils # (Auto) 6.6 x10^3/uL (1.8-7.7) Lymphocytes # (Auto) 0.4 x10^3/uL (1.0-4.8) Monocytes # (Auto) 0.7 x10^3/uL (0.0-1.1) Eosinophils # (Auto) 0.0 x10^3/uL (0.0-0.7) Basophils # (Auto) 0.0 x10^3/uL (0.0-0.2) Sodium Level 137 mmol/L (136-145) Potassium Level 3.3 mmol/L (3.5-5.1) Chloride Level 100 mmol/L (98-107) Carbon Dioxide Level 29 mmol/L (21-32) Anion Gap 8 (6-14) Blood Urea Nitrogen 14 mg/dL (8-26) Creatinine 0.9 mg/dL (0.7-1.3) Estimated GFR (Cockcroft-Gault) 79.6 Glucose Level 115 mg/dL (70-99) Calcium Level 8.4 mg/dL (8.5-10.1) Phosphorus Level 2.8 mg/dL (2.6-4.7) Magnesium Level 2.5 mg/dL (1.8-2.4) Medications Active Scripts Medications Dose Route/Sig Max Daily Dose Days Date Category Timoptic 0.5% (Timolol Maleate) 10 Ml Drops 1 Drop OS DAILY 30 02/28/20 Reported Spironolactone 100 Mg Tablet 0.5 Tab PO DAILY 02/28/20 Reported Simvastatin 20 Mg Tablet 1 Tab PO QHS 02/28/20 Reported Xalatan (Latanoprost) 2.5 Ml Drops 1 Drop EACHEYE QHS 02/28/20 Reported Viola 3 Fish Oil Softgel (Viola-3 Fatty Acids/Fish Oil) 1 Each Capsule.dr 1 Each PO DAILY 02/28/20 Reported Multi Vitamin Daily (Multivitamin) 1 Each Tablet 1 Tab PO DAILY 30 02/28/20 Reported Furosemide 40 Mg Tablet 3 Tab PO DAILY 02/28/20 Reported Carvedilol (Carvedilol) 6.25 Mg Tablet 6.25 Mg PO BIDWMEALS 02/28/20 Reported Brimonidine Tartrate 5 Ml Drops 1 Drop OS BID 02/28/20 Reported Imuran (Azathioprine) 50 Mg Tablet 3 Tab PO DAILY 30 02/28/20 Reported Aspirin 81 Mg Tab.chew 1 Tab PO DAILY 02/28/20 Reported Amlodipine Besylate 10 Mg Tablet 10 Mg PO DAILY 02/28/20 Reported Impression . IMPRESSION: 1. Acute hypoxic respiratory failure secondary to multifactorial etiologies and likely COVID-19 pneumonia. He lives with his son and [id number] and they are positive. Other differential diagnosis would include the possibility of congestive heart failure versus underlying interstitial lung disease related to Methotrexate. 2. Abnormal CT chest with bilateral interstitial infiltrates and some ground glass infiltrates. This is nonspecific, but in the setting of COVID-19 infection, this could be all related to COVID. Will benefit from a followup chest x-ray and CT chest post treatment. 3. No evidence of pulmonary embolism. 4. Questionable chronic obstructive pulmonary disease. 5. Morbid obesity, suspected obstructive sleep apnea and obesity hypoventilation syndrome. Plan . RECOMMENDATIONS: 1. Continue with present oxygen. Keep saturation 92 and above. 2. Dexamethasone. 3. Doxycycline. 4. Lovenox for DVT prophylaxis. 5. Follow up chest x-ray as needed clinically. 6. May benefit from a followup CT chest in 6-8 weeks. 7. The patient is currently on methotrexate. Possibility of methotrexate-induced interstitial lung disease cannot be ruled out. 8. Rule out COVID-19 IMER BECERRA MD Feb 29, 2020 08:25
[2020-02-29] MEDS: DOXYCYCLINE HYCLATE 100 MG in IV DEXTROSE 5% 100ML 100 ML IV SCH ×3 (09:00→20:24)
[2020-02-29] MEDS: DEXAMETHASONE SOD PHOS 4 MG/ML VIAL IVP SCH ×2 (09:00→10:21)
[2020-02-29] MEDS ORDERED: ENOXAPARIN 40 MG/0.4 ML SYRINGE. SQ SCH (09:00)
[2020-02-29] MEDS: ASPIRIN CHEWABLE 81 MG TABLET. PO SCH (10:19)
[2020-02-29] MEDS: ZINC SULFATE 220 MG CAPSULE. PO SCH (10:19)
[2020-02-29] MEDS: CHOLECALCIFEROL (VITAMIN D3) 5,000 UNIT CAPSULE PO SCH (10:19)
[2020-02-29] MEDS: amLODIPine BESYLATE 10 MG TABLET PO SCH (10:20)
[2020-02-29] MEDS: ASCORBIC ACID 500 MG TABLET PO SCH ×2 (10:20→20:25)
[2020-02-29] MEDS: azaTHIOprine 50 MG TABLET PO SCH (10:20)
[2020-02-29] MEDS: CARVEDILOL 6.25 MG TABLET. PO SCH ×2 (10:22→17:46)
[2020-02-29 10:44] VITALS: BP 145/61
[2020-02-29] MEDS: TIMOLOL 0.5% OPHTH SOLUTION 5ML BOTTLE. OS SCH (10:54)
--- NOTE | 2020-02-29 11:43 | NUR ---
The patient refused doxycycline and dexamethasone this morning. This nurse explained the indications of the medicines but he still refused. He stated that there's nothing wrong with him and his lungs are fine. He needs oxygen because he's a little short of breath. Notified Dr. Padron who spoke to the patient upon his rounds.
--- NOTE | 2020-02-29 11:46 | NUR ---
The patient is awake, alert x2, has episodes of confusion. He was verbally aggressive to the staff. He stated that he already said ten times to get rid of his water cup and nobody followed. He also said to this nurse that "you can only do one thing at a time?!" when he wanted extra blankets and cups of ice. This nurse explained to him that I'll give the medicines first then do the rest.
--- NOTE | 2020-02-29 12:49 | PDOC ---
[employer] [facility] PROGRESS NOTE Date of Service DOS: DATE: 02/29/20 TIME: 12:47 Chief Complaint Chief Complaint Acute encephalopathy NOS PUI for COVID Acute hypoxic respiratory distress Hyponatremia, Hypokalemia Myasthenia Gravis No obvious centrally acting medications currently. No obvious signs of infec tion on physical exam. No fevers or nuchal rigidity. CT head is negative for acute etiology. No history or signs of trauma Consider dementia prevention protocol Provide adequate lighting (open curtains during the day, turn the lights off at night) Provide frequent personal contact with family, friends, and staff or TV Encourage early and frequent mobilization Rehab screening ordered IV Haldol as needed for agitation, consider sitter as needed if non-redirectable agitation Avoid physical restraints, catheters or tubes, and benzodiazepines Nutrition consult if there is malnutrition or concern for vitamin deficiencies Continue IV fluids Pulmonology consult for Covid PNA Lovenox for DVT prophylaxis ADA diet Full code Discussed with RN and SW Dispo inpatient management as above. Pending discussion with family regarding palliative care versus aggressive management of comorbidities. History of Present Illness History of Present Illness 02/29/2020 No acute events overnight. Patient saturating 95% on 4 L nasal cannula. Fever of T-max of 100.6 F. Currently on doxycycline. Pending Covid test. Patient is currently refusing medications as of now because he thinks he does not need any of them. He says his home medication regimen has been fine. Will address CODE STATUS with family. Patient's chart, labs, images were reviewed and discussed with RN 89-year-old male past medical history significant for LE swelling on lasix 40mg tid, COPD (former tobacco use), HTN, HLD, gerd, glaucoma, R eye blindness (s/p CRAO), OA, and myasthenia gravis (on azathioprine, dx 2016), presents to the ED brought in by EMS from home, concern for altered mental status. Patient lives with his son and [id number]. Son tested positive for Covid 11 days ago. Dtgfrvrq-rz-ymj is having Covid symptoms and was tested today, now awaiting results. Patient was saturating 90% on room air, required 3 L nasal cannula. Patient is alert to self, month, location but not year. Pt with no active complaints in ed. Hx limited due to mental status and hearing difficulties. EMS reports they were out at patient's house earlier in the day for an accidental fall in the bathroom, unsure if pt hit his head (found back propped up next to tub), w/superficial skin tears to left arm. Pt is a DNR code status. Vitals/I&O Vitals/I&O: Vital Signs Date Time Temp Pulse Resp B/P (MAP) Pulse Ox O2 Delivery O2 Flow Rate FiO2 02/29/20 10:44 99.5 91 18 145/61 (89) 99.5 02/29/20 07:00 95 02/28/20 20:00 Nasal Cannula 4.0 I & O 02/28/20 02/28/20 02/29/20 15:00 23:00 07:00 Intake Total 140 ml 200 ml 240 ml Output Total 400 ml Balance 140 ml -200 ml 240 ml Physical Exam Lungs: Clear Labs Labs: Laboratory Tests Test 02/29/20 04:30 White Blood Count 7.7 x10^3/uL (4.0-11.0) Red Blood Count 4.22 x10^6/uL (4.30-5.70) Hemoglobin 12.7 g/dL (13.0-17.5) Hematocrit 37.0 % (39.0-53.0) Mean Corpuscular Volume 88 fL (79-100) Mean Corpuscular Hemoglobin 30 pg (25-35) Mean Corpuscular Hemoglobin Concent 34 g/dL (31-37) Red Cell Distribution Width 16.0 % (11.5-14.5) Platelet Count 150 x10^3/uL (140-400) Neutrophils (%) (Auto) 85 % (31-73) Lymphocytes (%) (Auto) 5 % (24-48) Monocytes (%) (Auto) 9 % (0-9) Eosinophils (%) (Auto) 0 % (0-3) Basophils (%) (Auto) 0 % (0-3) Neutrophils # (Auto) 6.6 x10^3/uL (1.8-7.7) Lymphocytes # (Auto) 0.4 x10^3/uL (1.0-4.8) Monocytes # (Auto) 0.7 x10^3/uL (0.0-1.1) Eosinophils # (Auto) 0.0 x10^3/uL (0.0-0.7) Basophils # (Auto) 0.0 x10^3/uL (0.0-0.2) Sodium Level 137 mmol/L (136-145) Potassium Level 3.3 mmol/L (3.5-5.1) Chloride Level 100 mmol/L (98-107) Carbon Dioxide Level 29 mmol/L (21-32) Anion Gap 8 (6-14) Blood Urea Nitrogen 14 mg/dL (8-26) Creatinine 0.9 mg/dL (0.7-1.3) Estimated GFR (Cockcroft-Gault) 79.6 Glucose Level 115 mg/dL (70-99) Calcium Level 8.4 mg/dL (8.5-10.1) Phosphorus Level 2.8 mg/dL (2.6-4.7) Magnesium Level 2.5 mg/dL (1.8-2.4) Assessment and Plan Assessmemt and Plan Problems Medical Problems: (1) Acute respiratory failure with hypoxia Status: Acute (2) CAP (community acquired pneumonia) Status: Acute (3) Person under investigation for COVID-19 Status: Acute Comment Review of Relevant I have reviewed the following items massimo (where applicable) has been applied. Medications: Current Medications Medications (Trade) Dose Ordered Sig/Nicola Route PRN Reason Start Time Stop Time Status Last Admin Dose Admin Amlodipine Besylate (Norvasc) 10 mg DAILY PO 02/29/20 09:00 02/29/20 10:20 Aspirin (Aspirin Chewable) 81 mg DAILY PO 02/29/20 09:00 02/29/20 10:19 Carvedilol (Coreg) 6.25 mg BIDWMEALS PO 02/28/20 18:30 02/29/20 10:22 Simvastatin (Zocor) 20 mg QHS PO 02/28/20 21:00 02/28/20 22:32 Timolol Maleate (Timoptic 0.5% [facility]) 1 drop DAILY OS 02/29/20 09:00 02/29/20 10:54 Azathioprine (Imuran) 150 mg DAILY PO 02/29/20 09:00 02/29/20 10:20 Enoxaparin Sodium (Lovenox 40mg Syringe) 40 mg Q24H SQ 02/29/20 09:00 02/29/20 10:21 Enoxaparin Sodium (Lovenox 40mg Syringe) 40 mg 1X ONCE SQ 02/28/20 17:45 02/28/20 17:46 DC 02/28/20 17:51 Justifications for Admission Other Justification Respiratory failure with hypoxia, COVID-19 PNA [place] PETTIT MD Feb 29, 2020 12:49
[2020-02-29 14:42] VITALS: BP 149/65
--- NOTE | 2020-02-29 16:40 | NUR ---
The patient was found sitting on the floor by the ANTHROPOLOGY DEPARTMENT CHAIR when she went in the room at 1530. This nurse went in the room and saw the patient on sitting position on the floor with his left hand supporting his weight. When asked, the patient denied pain or hitting his head. He's awake, alert, oriented x 3 and told this nurse that he tried to get out of his chair. Earlier PT worked with him and he was placed on the recliner. farm equipment mechanic apprentice and 2 other nurses came to help to put him back on the bed using the lift. VS BP139/67 HR92 RR 22 O2 sat 97% on 4 liters and repeat VS upon returning to bed were BP 146/70 HR 79 RR 20 O2 sat 95% on 4LPM. Dr. Padron, notified of the incident, order for a shoulder x-ray acknowledged. The patient's DPLAURA, Jaciel Lam updated at [id number].
[2020-02-29 19:00] VITALS: BP 152/86
[2020-02-29] MEDS: SIMVASTATIN 20 MG TABLET PO SCH (20:25)
[2020-02-29 23:00] VITALS: BP 163/81
[2020-03-01 03:00] VITALS: BP 192/88
[2020-03-01] MEDS: DOXYCYCLINE HYCLATE 100 MG in IV DEXTROSE 5% 100ML 100 ML IV SCH ×3 (06:55→20:26)
[2020-03-01 07:00] VITALS: BP 176/84
[2020-03-01] MEDS: ZINC SULFATE 220 MG CAPSULE. PO SCH (08:55)
[2020-03-01] MEDS: ASCORBIC ACID 500 MG TABLET PO SCH ×2 (08:55→20:25)
[2020-03-01] MEDS: CHOLECALCIFEROL (VITAMIN D3) 5,000 UNIT CAPSULE PO SCH (08:55)
[2020-03-01] MEDS: ENOXAPARIN 40 MG/0.4 ML SYRINGE. SQ SCH ×4 (08:56→22:24)
[2020-03-01] MEDS: ASPIRIN CHEWABLE 81 MG TABLET. PO SCH (08:56)
[2020-03-01] MEDS: azaTHIOprine 50 MG TABLET PO SCH (08:56)
[2020-03-01] MEDS: DEXAMETHASONE SOD PHOS 4 MG/ML VIAL IVP SCH (08:57)
[2020-03-01] MEDS: TIMOLOL 0.5% OPHTH SOLUTION 5ML BOTTLE. OS SCH (08:57)
[2020-03-01] MEDS: amLODIPine BESYLATE 10 MG TABLET PO SCH (09:01)
[2020-03-01] MEDS: CARVEDILOL 6.25 MG TABLET. PO SCH ×2 (09:02→17:26)
--- NOTE | 2020-03-01 09:58 | PDOC ---
PULMONARY PROGRESS NOTES DATE: 03/01/20 TIME: 09:57 Subjective no soa Vitals Vital Signs Date Time Temp Pulse Resp B/P (MAP) Pulse Ox O2 Delivery O2 Flow Rate FiO2 03/01/20 09:02 76 176/84 03/01/20 07:00 98.5 20 95 Nasal Cannula 98.5 02/29/20 20:15 4.0 General: Alert, No acute distress Lungs: Clear Cardiovascular: S1 Abdomen: Soft, Other (obese) Extremities: No Edema Skin: Warm Labs Laboratory Tests Test 02/29/20 04:30 02/29/20 08:06 White Blood Count 7.7 x10^3/uL (4.0-11.0) Red Blood Count 4.22 x10^6/uL (4.30-5.70) Hemoglobin 12.7 g/dL (13.0-17.5) Hematocrit 37.0 % (39.0-53.0) Mean Corpuscular Volume 88 fL (79-100) Mean Corpuscular Hemoglobin 30 pg (25-35) Mean Corpuscular Hemoglobin Concent 34 g/dL (31-37) Red Cell Distribution Width 16.0 % (11.5-14.5) Platelet Count 150 x10^3/uL (140-400) Neutrophils (%) (Auto) 85 % (31-73) Lymphocytes (%) (Auto) 5 % (24-48) Monocytes (%) (Auto) 9 % (0-9) Eosinophils (%) (Auto) 0 % (0-3) Basophils (%) (Auto) 0 % (0-3) Neutrophils # (Auto) 6.6 x10^3/uL (1.8-7.7) Lymphocytes # (Auto) 0.4 x10^3/uL (1.0-4.8) Monocytes # (Auto) 0.7 x10^3/uL (0.0-1.1) Eosinophils # (Auto) 0.0 x10^3/uL (0.0-0.7) Basophils # (Auto) 0.0 x10^3/uL (0.0-0.2) Sodium Level 137 mmol/L (136-145) Potassium Level 3.3 mmol/L (3.5-5.1) Chloride Level 100 mmol/L (98-107) Carbon Dioxide Level 29 mmol/L (21-32) Anion Gap 8 (6-14) Blood Urea Nitrogen 14 mg/dL (8-26) Creatinine 0.9 mg/dL (0.7-1.3) Estimated GFR (Cockcroft-Gault) 79.6 Glucose Level 115 mg/dL (70-99) Calcium Level 8.4 mg/dL (8.5-10.1) Phosphorus Level 2.8 mg/dL (2.6-4.7) Magnesium Level 2.5 mg/dL (1.8-2.4) Glucose (Fingerstick) 121 mg/dL (70-99) Medications Active Scripts Medications Dose Route/Sig Max Daily Dose Days Date Category Timoptic 0.5% (Timolol Maleate) 10 Ml Drops 1 Drop OS DAILY 30 02/28/20 Reported Spironolactone 100 Mg Tablet 0.5 Tab PO DAILY 02/28/20 Reported Simvastatin 20 Mg Tablet 1 Tab PO QHS 02/28/20 Reported Xalatan (Latanoprost) 2.5 Ml Drops 1 Drop EACHEYE QHS 02/28/20 Reported [place] 3 Fish Oil Softgel ([place]-3 Fatty Acids/Fish Oil) 1 Each Capsule.dr 1 Each PO DAILY 02/28/20 Reported Multi Vitamin Daily (Multivitamin) 1 Each Tablet 1 Tab PO DAILY 30 02/28/20 Reported Furosemide 40 Mg Tablet 3 Tab PO DAILY 02/28/20 Reported Carvedilol (Carvedilol) 6.25 Mg Tablet 6.25 Mg PO BIDWMEALS 02/28/20 Reported Brimonidine Tartrate 5 Ml Drops 1 Drop OS BID 02/28/20 Reported Imuran (Azathioprine) 50 Mg Tablet 3 Tab PO DAILY 30 02/28/20 Reported Aspirin 81 Mg Tab.chew 1 Tab PO DAILY 02/28/20 Reported Amlodipine Besylate 10 Mg Tablet 10 Mg PO DAILY 02/28/20 Reported Impression . IMPRESSION: 1. Acute hypoxic respiratory failure secondary to multifactorial etiologies and likely COVID-19 pneumonia. He lives with his son and [id number] and they are positive. Other differential diagnosis would include the possibility of congestive heart failure versus underlying interstitial lung disease related to Methotrexate. 2. Abnormal CT chest with bilateral interstitial infiltrates and some ground glass infiltrates. This is nonspecific, but in the setting of COVID-19 infection, this could be all related to COVID. Will benefit from a followup chest x-ray and CT chest post treatment. 3. No evidence of pulmonary embolism. 4. Questionable chronic obstructive pulmonary disease. 5. Morbid obesity, suspected obstructive sleep apnea and obesity hypoventilation syndrome. Plan . RECOMMENDATIONS: 1. Continue with present oxygen. Keep saturation 92 and above. 2. Dexamethasone. 3. Doxycycline. 4. Lovenox for DVT prophylaxis. 5. Follow up chest x-ray as needed clinically. 6. May benefit from a followup CT chest in 6-8 weeks. 7. The patient is currently on methotrexate. Possibility of methotrexate-induced interstitial lung disease cannot be ruled out. 8. repeat cxr Tuesday IMER BECERRA MD Mar 01, 2020 09:58
--- NOTE | 2020-03-01 11:01 | PDOC ---
[employer] PROGRESS NOTE Date of Service DOS: DATE: 03/01/20 TIME: 11:00 Chief Complaint Chief Complaint Acute encephalopathy NOS Covid infection Acute hypoxic respiratory distress Hyponatremia, Hypokalemia Myasthenia Gravis No obvious centrally acting medications currently. No obvious signs of inf ection on physical exam. No fevers or nuchal rigidity. CT head is negative for acute etiology. No history or signs of trauma Consider dementia prevention protocol Provide adequate lighting (open curtains during the day, turn the lights off at night) Provide frequent personal contact with family, friends, and staff or TV Encourage early and frequent mobilization Rehab screening ordered IV Haldol as needed for agitation, consider sitter as needed if non-redirectable agitation Avoid physical restraints, catheters or tubes, and benzodiazepines Nutrition consult if there is malnutrition or concern for vitamin deficiencies Continue IV fluids Pulmonology consult for Covid PNA Lovenox for DVT prophylaxis ADA diet Full code Discussed with RN and SW Dispo inpatient management as above. Pending discussion with family regarding palliative care versus aggressive management of comorbidities. History of Present Illness History of Present Illness 03/01/2020 No acute events overnight. Patient did have a fall during the day in which he states that he feels fine after that. There is no shoulder deformity and no x-r ay was taken. Patient has no complaints voiced at this time. Patient does refuse some treatments as he states that he he is not in control and that God makes all decisions for him at this time. I did speak with the patient's son about his current management and recent Covid diagnosis. They agree with resuming current care and patient is to remain on DNR/DNI status. Patient's c bartholomew, labs, images were reviewed and discussed with RN 02/29/2020 No acute events overnight. Patient saturating 95% on 4 L nasal cannula. Fever of T-max of 100.6 F. Currently on doxycycline. Pending Covid test. Patient is currently refusing medications as of now because he thinks he does not need any of them. He says his home medication regimen has been fine. Will address CODE STATUS with family. Patient's chart, labs, images were reviewed and discussed with RN 89-year-old male past medical history significant for LE swelling on lasix 40mg tid, COPD (former tobacco use), HTN, HLD, gerd, glaucoma, R eye blindness (s/p CRAO), OA, and myasthenia gravis (on azathioprine, dx 2016), presents to the ED brought in by EMS from home, concern for altered mental status. Patient lives with his son and [id number]. Son tested positive for Covid 11 days ago. Silkpbkd-wr-sra is having Covid symptoms and was tested today, now awaiting results. Patient was saturating 90% on room air, required 3 L nasal cannula. Patient is alert to self, month, location but not year. Pt with no active complaints in ed. Hx limited due to mental status and hearing difficulties. EMS reports they were out at patient's house earlier in the day for an accidental fall in the bathroom, unsure if pt hit his head (found back propped up next to tub), w/superficial skin tears to left arm. Pt is a DNR code status. Vitals/I&O Vitals/I&O: Vital Signs Date Time Temp Pulse Resp B/P (MAP) Pulse Ox O2 Delivery O2 Flow Rate FiO2 03/01/20 09:02 76 176/84 03/01/20 07:00 98.5 20 95 Nasal Cannula 98.5 02/29/20 20:15 4.0 I & O 02/29/20 02/29/20 03/01/20 15:00 23:00 07:00 Intake Total 50 ml 100 ml Output Total 500 ml Balance 50 ml -400 ml Physical Exam General: Alert, No acute distress Heart: Regular rate Lungs: Clear Assessment and Plan Assessmemt and Plan Problems Medical Problems: (1) Acute respiratory failure with hypoxia Status: Acute (2) CAP (community acquired pneumonia) Status: Acute (3) Person under investigation for COVID-19 Status: Acute Comment Review of Relevant I have reviewed the following items massimo (where applicable) has been applied. Justifications for Admission Other Justification Respiratory failure with hypoxia, COVID-19 PNA [place] PETTIT MD Mar 01, 2020 11:01
[2020-03-01 11:50] VITALS: BP 161/72
[2020-03-01 12:11] LABS: BASO % 0 % (0-3); EOS % 0 % (0-3); HEMATOCRIT 38.8 % (39.0-53.0); HEMOGLOBIN 12.7 g/dL (13.0-17.5); LYMPH # 0.1 x10^3/uL (1.0-4.8); LYMPH % 1 % (24-48); MEAN CORPUSCULAR HEMOGLOBIN 30 pg (25-35); MEAN CORPUSCULAR HGB CONC 33 g/dL (31-37); MEAN CORPUSCULAR VOLUME 90 fL (79-100); MONO # 0.5 x10^3/uL (0.0-1.1); MONO % 4 % (0-9); NEUT # 11.6 x10^3/uL (1.8-7.7); NEUT % 95 % (31-73); PLATELET COUNT 168 x10^3/uL (140-400); RED BLOOD COUNT 4.32 x10^6/uL (4.30-5.70); RED CELL DISTRIBUTION WIDTH 16.2 % (11.5-14.5); WHITE BLOOD COUNT 12.2 x10^3/uL (4.0-11.0)
[2020-03-01 12:16] LABS: CALCIUM 8.4 mg/dL (8.5-10.1); CREATININE 1.1 mg/dL (0.7-1.3); GFR 63.2; MAGNESIUM 2.5 mg/dL (1.8-2.4); POTASSIUM 3.6 mmol/L (3.5-5.1)
[2020-03-01 15:32] VITALS: BP 165/81
[2020-03-01 19:00] VITALS: BP 158/70
[2020-03-01] MEDS: SIMVASTATIN 20 MG TABLET PO SCH (20:25)
[2020-03-01 23:06] VITALS: BP 166/76
[2020-03-02 03:07] VITALS: BP 179/78
[2020-03-02 07:00] VITALS: BP 199/93
[2020-03-02] MEDS: azaTHIOprine 50 MG TABLET PO SCH (08:12)
[2020-03-02] MEDS: amLODIPine BESYLATE 10 MG TABLET PO SCH (08:13)
[2020-03-02] MEDS: CARVEDILOL 6.25 MG TABLET. PO SCH ×2 (08:13→16:13)
[2020-03-02] MEDS: ZINC SULFATE 220 MG CAPSULE. PO SCH (08:13)
[2020-03-02] MEDS: ASCORBIC ACID 500 MG TABLET PO SCH ×2 (08:13→20:26)
[2020-03-02] MEDS: ASPIRIN CHEWABLE 81 MG TABLET. PO SCH (08:13)
[2020-03-02] MEDS: CHOLECALCIFEROL (VITAMIN D3) 5,000 UNIT CAPSULE PO SCH (08:13)
[2020-03-02] MEDS: DEXAMETHASONE SOD PHOS 4 MG/ML VIAL IVP SCH (08:15)
[2020-03-02] MEDS: DOXYCYCLINE HYCLATE 100 MG in IV DEXTROSE 5% 100ML 100 ML IV SCH ×2 (08:18→20:25)
[2020-03-02] MEDS: TIMOLOL 0.5% OPHTH SOLUTION 5ML BOTTLE. OS SCH (08:46)
[2020-03-02] MEDS: ENOXAPARIN 40 MG/0.4 ML SYRINGE. SQ SCH ×2 (08:46→20:26)
[2020-03-02 11:00] VITALS: BP 155/81
--- NOTE | 2020-03-02 12:20 | PDOC ---
[employer] PROGRESS NOTE Date of Service DOS: DATE: 03/02/20 TIME: 12:19 Chief Complaint Chief Complaint Acute encephalopathy NOS Covid infection Acute hypoxic respiratory distress Hyponatremia, Hypokalemia Myasthenia Gravis Moderate dementia No obvious centrally acting medications currently. No obvious signs of infection on physical exam. No fevers or nuchal rigidity. CT head is negative for acute etiology. No history or signs of trauma Consider dementia prevention protocol Provide adequate lighting (open curtains during the day, turn the lights off at night) Provide frequent personal contact with family, friends, and staff or TV Encourage early and frequent mobilization Rehab screening ordered IV Haldol as needed for agitation, consider sitter as needed if non-redirectable agitation Avoid physical restraints, catheters or tubes, and benzodiazepines Nutrition consult if there is malnutrition or concern for vitamin deficiencies Continue IV fluids Pulmonology consult for Covid PNA Lovenox for DVT prophylaxis ADA diet Full code Discussed with RN and IVA Dispo inpatient management as above. Pending discussion with family regarding palliative care versus aggressive management of comorbidities. History of Present Illness History of Present Illness 03/02/2020 No major events overnight. Patient saturating 93% on 4 L nasal cannula. No complaints voiced at this time. He is still refusing Lovenox injections. Patient's chart, labs, images were reviewed and discussed with RN. IV remdesivir initiated today 03/01/2020 No acute events overnight. Patient did have a fall during the day in which he states that he feels fine after that. There is no shoulder deformity and no x- ray was taken. Patient has no complaints voiced at this time. Patient does refuse some treatments as he states that he he is not in control and that God makes all decisions for him at this time. I did speak with the patient's son about his current management and recent Covid diagnosis. They agree with resuming current care and patient is to remain on DNR/DNI status. Patient's chart, labs, images were reviewed and discussed with RN 02/29/2020 No acute events overnight. Patient saturating 95% on 4 L nasal cannula. Fever of T-max of 100.6 F. Currently on doxycycline. Pending Covid test. Patient is currently refusing medications as of now because he thinks he does not need any of them. He says his home medication regimen has been fine. Will address CODE STATUS with family. Patient's chart, labs, images were reviewed and discussed with RN 89-year-old male past medical history significant for LE swelling on lasix 40mg tid, COPD (former tobacco use), HTN, HLD, gerd, glaucoma, R eye blindness (s/p CRAO), OA, and myasthenia gravis (on azathioprine, dx 2016), presents to the ED brought in by EMS from home, concern for altered mental status. Patient lives with his son and ulsgvhcr-uv-ikq. Son tested positive for Covid 11 days ago. Lcafeyvc-mf-omj is having Covid symptoms and was tested today, now awaiting results. Patient was saturating 90% on room air, required 3 L nasal cannula. Patient is alert to self, month, location but not year. Pt with no active complaints in ed. Hx limited due to mental status and hearing difficulties. EMS reports they were out at patient's house earlier in the day for an accidental fall in the bathroom, unsure if pt hit his head (found back propped up next to tub), w/superficial skin tears to left arm. Pt is a DNR code status. Vitals/I&O Vitals/I&O: Vital Signs Date Time Temp Pulse Resp B/P (MAP) Pulse Ox O2 Delivery O2 Flow Rate FiO2 03/02/20 08:13 74 179/78 03/02/20 07:00 94.1 24 89 Nasal Cannula 4.0 94.1 I & O 03/01/20 03/01/20 03/02/20 15:00 23:00 07:00 Intake Total 500 ml 360 ml Output Total 550 ml 0 ml Balance 500 ml -190 ml 0 ml Physical Exam General: Alert, No acute distress Heart: Regular rate Lungs: Clear Assessment and Plan Assessmemt and Plan Problems Medical Problems: (1) Acute respiratory failure with hypoxia Status: Acute (2) CAP (community acquired pneumonia) Status: Acute (3) Person under investigation for COVID-19 Status: Acute Comment Review of Relevant I have reviewed the following items massimo (where applicable) has been applied. Justifications for Admission Other Justification Respiratory failure with hypoxia, COVID-19 PNA [place] PETTIT MD Mar 02, 2020 12:20
[2020-03-02 15:00] VITALS: BP 172/77
[2020-03-02] MEDS ORDERED: REMDESIVIR LOAD in IV NORMAL SALINE 250ML TV IV ONE (16:00)
[2020-03-02] MEDS: BENZONATATE 100 MG CAPSULE. PO PRN (17:50)
[2020-03-02 19:00] VITALS: BP 157/72
[2020-03-02] MEDS: SIMVASTATIN 20 MG TABLET PO SCH (20:25)
[2020-03-02 23:00] VITALS: BP 160/70
--- NOTE | 2020-03-02 23:05 | NUR ---
Pt's sats in mid-80's on 15L NC. Placed on 15L 100% non-rebreather; spO2 up to 92%, RR 34. Pt currently resting comfortably in chair. Will continue to monitor.
[2020-03-03 03:20] VITALS: BP 155/72
[2020-03-03 07:14] VITALS: BP 146/64
[2020-03-03] MEDS: ENOXAPARIN 40 MG/0.4 ML SYRINGE. SQ SCH ×2 (09:00→21:04)
[2020-03-03] MEDS: CHOLECALCIFEROL (VITAMIN D3) 5,000 UNIT CAPSULE PO SCH (09:41)
[2020-03-03] MEDS: amLODIPine BESYLATE 10 MG TABLET PO SCH (09:41)
[2020-03-03] MEDS: ZINC SULFATE 220 MG CAPSULE. PO SCH (09:41)
[2020-03-03] MEDS: ASPIRIN CHEWABLE 81 MG TABLET. PO SCH (09:41)
[2020-03-03] MEDS: ASCORBIC ACID 500 MG TABLET PO SCH ×2 (09:42→21:04)
[2020-03-03] MEDS: CARVEDILOL 6.25 MG TABLET. PO SCH ×2 (09:42→17:13)
[2020-03-03] MEDS: TIMOLOL 0.5% OPHTH SOLUTION 5ML BOTTLE. OS SCH (09:42)
[2020-03-03] MEDS: azaTHIOprine 50 MG TABLET PO SCH (09:42)
[2020-03-03] MEDS: DEXAMETHASONE SOD PHOS 4 MG/ML VIAL IVP SCH (09:43)
[2020-03-03] MEDS: DOXYCYCLINE HYCLATE 100 MG in IV DEXTROSE 5% 100ML 100 ML IV SCH ×2 (09:43→21:04)
[2020-03-03] MEDS ORDERED: FUROSEMIDE 20 MG/2 ML VIAL. IVP ONE (10:30)
--- NOTE | 2020-03-03 10:32 | PDOC ---
PULMONARY PROGRESS NOTES DATE: 03/03/20 TIME: 10:28 Subjective PT. has increased oxygen requirement, now on 100% NRB non productive cough Fever overnight Vitals Vital Signs Date Time Temp Pulse Resp B/P (MAP) Pulse Ox O2 Delivery O2 Flow Rate FiO2 03/03/20 09:42 77 146/64 03/03/20 07:14 97.8 18 90 NonRebreather Mask 97.8 03/02/20 20:20 4.0 Comments Pt. seen during covid-19 pandemic visual exam preformed RRR 100% NRB obese No rash or edema No accessory muscle use General: Lethargic Labs Laboratory Tests Test 03/01/20 11:30 White Blood Count 12.2 x10^3/uL (4.0-11.0) Red Blood Count 4.32 x10^6/uL (4.30-5.70) Hemoglobin 12.7 g/dL (13.0-17.5) Hematocrit 38.8 % (39.0-53.0) Mean Corpuscular Volume 90 fL (79-100) Mean Corpuscular Hemoglobin 30 pg (25-35) Mean Corpuscular Hemoglobin Concent 33 g/dL (31-37) Red Cell Distribution Width 16.2 % (11.5-14.5) Platelet Count 168 x10^3/uL (140-400) Neutrophils (%) (Auto) 95 % (31-73) Lymphocytes (%) (Auto) 1 % (24-48) Monocytes (%) (Auto) 4 % (0-9) Eosinophils (%) (Auto) 0 % (0-3) Basophils (%) (Auto) 0 % (0-3) Neutrophils # (Auto) 11.6 x10^3/uL (1.8-7.7) Lymphocytes # (Auto) 0.1 x10^3/uL (1.0-4.8) Monocytes # (Auto) 0.5 x10^3/uL (0.0-1.1) Eosinophils # (Auto) 0.0 x10^3/uL (0.0-0.7) Basophils # (Auto) 0.0 x10^3/uL (0.0-0.2) Sodium Level 135 mmol/L (136-145) Potassium Level 3.6 mmol/L (3.5-5.1) Chloride Level 98 mmol/L (98-107) Carbon Dioxide Level 28 mmol/L (21-32) Anion Gap 9 (6-14) Blood Urea Nitrogen 14 mg/dL (8-26) Creatinine 1.1 mg/dL (0.7-1.3) Estimated GFR (Cockcroft-Gault) 63.2 Glucose Level 169 mg/dL (70-99) Calcium Level 8.4 mg/dL (8.5-10.1) Magnesium Level 2.5 mg/dL (1.8-2.4) Medications Active Scripts Medications Dose Route/Sig Max Daily Dose Days Date Category Timoptic 0.5% (Timolol Maleate) 10 Ml Drops 1 Drop OS DAILY 30 02/28/20 Reported Spironolactone 100 Mg Tablet 0.5 Tab PO DAILY 02/28/20 Reported Simvastatin 20 Mg Tablet 1 Tab PO QHS 02/28/20 Reported Xalatan (Latanoprost) 2.5 Ml Drops 1 Drop EACHEYE QHS 02/28/20 Reported [place] 3 Fish Oil Softgel ([place]-3 Fatty Acids/Fish Oil) 1 Each Capsule.dr 1 Each PO DAILY 02/28/20 Reported Multi Vitamin Daily (Multivitamin) 1 Each Tablet 1 Tab PO DAILY 30 02/28/20 Reported Furosemide 40 Mg Tablet 3 Tab PO DAILY 02/28/20 Reported Carvedilol (Carvedilol) 6.25 Mg Tablet 6.25 Mg PO BIDWMEALS 02/28/20 Reported Brimonidine Tartrate 5 Ml Drops 1 Drop OS BID 02/28/20 Reported Imuran (Azathioprine) 50 Mg Tablet 3 Tab PO DAILY 30 02/28/20 Reported Aspirin 81 Mg Tab.chew 1 Tab PO DAILY 02/28/20 Reported Amlodipine Besylate 10 Mg Tablet 10 Mg PO DAILY 02/28/20 Reported Comments 03/03- CXR worsening Bilateral infiltrates Impression . IMPRESSION: 1. Acute hypoxic respiratory failure secondary to multifactorial etiologies including COVID-19 pneumonia. He lives with his son and [id number] and they are positive. Other differential diagnosis would include the possibility of congestive heart failure . Less likely underlying interstitial lung disease related to Methotrexate. 2. Abnormal CT chest with bilateral interstitial infiltrates and some ground glass infiltrates. This is nonspecific, but in the setting of COVID-19 infection, this could be all related to COVID. 3. No evidence of pulmonary embolism. 4. Questionable chronic obstructive pulmonary disease. 5. Morbid obesity, suspected obstructive sleep apnea and obesity hypoventilation syndrome. 6. COVID-19 positive Plan . Continue supplemental oxygen to keep sats above 92%, now on 100% NRB Follow CXR PRn, reviewed today worsening Bilateral infiltrates-- lasix X1 / suspect all due to COVID Continue Dexamethasone Continue full course of remdesivir Continue Doxycycline. May benefit from a followup CT chest in 6-8 weeks. The patient is currently on methotrexate. Possibility of methotrexate-induced interstitial lung disease less likely PT/OT DVT/GI PPX D/W RN and RT PT. is DNR IMER BECERRA MD Mar 03, 2020 10:32
[2020-03-03 11:18] VITALS: BP 134/65
--- NOTE | 2020-03-03 11:42 | RAD ---
XR CHEST 1V History: Reason: pna / Spl. Instructions: / History: Comparison: February 28, 2020 Findings: Increased bilateral mid and basilar consolidations. No pleural effusion. No pneumothorax. Cardiomegal y, unchanged. Impression: 1. Increased mid and bibasilar consolidations, may represent pneumonia or pulmonary edema. 2. Cardiomegaly, unchanged. Electronically signed by: Yasmani Christy DO (03/03/2020 11:39 AM) [id number]
--- NOTE | 2020-03-03 12:10 | PDOC ---
[facility] PROGRESS NOTE Date of Service DOS: DATE: 03/03/20 TIME: 12:08 Chief Complaint Chief Complaint Acute encephalopathy NOS Covid infection Acute hypoxic respiratory distressworsening Hyponatremia, Hypokalemia Myasthenia Gravis Moderate dementia No obvious centrally acting medications currently. No obvious signs of infection on physical exam. No fevers or nuchal rigidity. CT head is negative for acute etiology. No history or signs of trauma Consider dementia prevention protocol Provide adequate lighting (open curtains during the day, turn the lights off at night) Provide frequent personal contact with family, friends, and staff or TV Encourage early and frequent mobilization Rehab screening ordered IV Haldol as needed for agitation, consider sitter as needed if non-redirectable agitation Avoid physical restraints, catheters or tubes, and benzodiazepines Nutrition consult if there is malnutrition or concern for vitamin deficiencies Pulmonology consult for Covid PNA Continue with math plus protocol, IV steroids, IV Remdesivir and IV steroids Lovenox for DVT prophylaxis ADA diet Full code Discussed with RN and SW Dispo inpatient management as above. Pending discussion with family regarding palliative care versus aggressive management of comorbidities. History of Present Illness History of Present Illness 03/03/2020 No major events overnight. Patient is now 100% nonrebreather saturating 95%. Patient is DNR status. T-max of 99.6 F overnight. Does not appear to be more dyspneic. Working with physical therapy and sitting upright on commode. Patient's chart, labs, images were reviewed and discussed with RN. Chest X showing worsening bilateral infiltrates. Lasix 40 mg IV given x1. 03/02/2020 No major events overnight. Patient saturating 93% on 4 L nasal cannula. No complaints voiced at this time. He is still refusing Lovenox injections. Patient's chart, labs, images were reviewed and discussed with RN. IV remdesivir initiated today 03/01/2020 No acute events overnight. Patient did have a fall during the day in which he states that he feels fine after that. There is no shoulder deformity and no x- ray was taken. Patient has no complaints voiced at this time. Patient does refuse some treatments as he states that he he is not in control and that God makes all decisions for him at this time. I did speak with the patient's son about his current management and recent Covid diagnosis. They agree with resuming current care and patient is to remain on DNR/DNI status. Patient's chart, labs, images were reviewed and discussed with RN 02/29/2020 No acute events overnight. Patient saturating 95% on 4 L nasal cannula. Fever of T-max of 100.6 F. Currently on doxycycline. Pending Covid test. Patient is currently refusing medications as of now because he thinks he does not need any of them. He says his home medication regimen has been fine. Will address CODE STATUS with family. Patient's chart, labs, images were reviewed and discussed with RN 89-year-old male past medical history significant for LE swelling on lasix 40mg tid, COPD (former tobacco use), HTN, HLD, gerd, glaucoma, R eye blindness (s/p CRAO), OA, and myasthenia gravis (on azathioprine, dx 2016), presents to the ED brought in by EMS from home, concern for altered mental status. Patient lives with his son and [id number]. Son tested positive for Covid 11 days ago. Xvxlbwoa-[id number] is having Covid symptoms and was tested today, now awaiting results. Patient was saturating 90% on room air, required 3 L nasal cannula. Patient is alert to self, month, location but not year. Pt with no active complaints in ed. Hx limited due to mental status and hearing difficulties. EMS reports they were out at patient's house earlier in the day for an accidental fall in the bathroom, unsure if pt hit his head (found back propped up next to tub), w/superficial skin tears to left arm. Pt is a DNR code status. Vitals/I&O Vitals/I&O: Vital Signs Date Time Temp Pulse Resp B/P (MAP) Pulse Ox O2 Delivery O2 Flow Rate FiO2 03/03/20 11:18 97.5 72 18 134/65 (88) 93 NonRebreather Mask 15.0 97.5 I & O 03/02/20 03/02/20 03/03/20 15:00 23:00 07:00 Output Total 600 ml 0 ml Balance -600 ml 0 ml Physical Exam General: Alert, No acute distress Heart: Regular rate Assessment and Plan Assessmemt and Plan Problems Medical Problems: (1) Acute respiratory failure with hypoxia Status: Acute (2) CAP (community acquired pneumonia) Status: Acute (3) Person under investigation for COVID-19 Status: Acute Comment Review of Relevant I have reviewed the following items massimo (where applicable) has been applied. Medications: Current Medications Medications (Trade) Dose Ordered Sig/Nicola Route PRN Reason Start Time Stop Time Status Last Admin Dose Admin Remdesivir 200 mg/ Sodium Chloride 210 ml @ 210 mls/hr 1X ONCE IV 03/02/20 16:00 03/02/20 16:59 DC 03/02/20 16:08 Benzonatate (Tessalon Perle) 100 mg PRN Q6HRS PRN PO COUGH 03/02/20 17:45 03/02/20 17:50 Furosemide (Lasix) 20 mg 1X ONCE IVP 03/03/20 10:30 03/03/20 10:31 DC 03/03/20 10:54 Justifications for Admission Other Justification Respiratory failure with hypoxia, COVID-19 PNA [place] PETTIT MD Mar 03, 2020 12:10
[2020-03-03 15:08] LABS: BASO % 0 % (0-3); EOS % 0 % (0-3); HEMATOCRIT 37.1 % (39.0-53.0); HEMOGLOBIN 12.2 g/dL (13.0-17.5); LYMPH # 0.1 x10^3/uL (1.0-4.8); LYMPH % 1 % (24-48); MEAN CORPUSCULAR HEMOGLOBIN 29 pg (25-35); MEAN CORPUSCULAR HGB CONC 33 g/dL (31-37); MEAN CORPUSCULAR VOLUME 89 fL (79-100); MONO # 0.6 x10^3/uL (0.0-1.1); MONO % 4 % (0-9); NEUT # 12.1 x10^3/uL (1.8-7.7); NEUT % 95 % (31-73); PLATELET COUNT 199 x10^3/uL (140-400); RED BLOOD COUNT 4.19 x10^6/uL (4.30-5.70); RED CELL DISTRIBUTION WIDTH 16.2 % (11.5-14.5); WHITE BLOOD COUNT 12.8 x10^3/uL (4.0-11.0)
[2020-03-03 15:18] VITALS: BP 158/69
[2020-03-03 15:32] LABS: CALCIUM 8.7 mg/dL (8.5-10.1); CREATININE 0.8 mg/dL (0.7-1.3); GFR 91.2; MAGNESIUM 2.5 mg/dL (1.8-2.4); POTASSIUM 3.5 mmol/L (3.5-5.1)
--- NOTE | 2020-03-03 16:29 | NUR ---
SW following for discharge planning. Spoke with RN and reviewed chart. Pt COVID positive. Pt on 15l non rebreather. Pt on IV Remdesivier. Possible hospice referral on 03/[address] Padron. SW following.
--- NOTE | 2020-03-03 16:47 | NUR ---
Wound/Ostomy Care Wound Type/Assessment: Pt seen per wound care consult. See wound assessment. Pt has large skin tear to the left upper arm. Wound cleansed, assessed, measured, and pictured. Treatment Recommendations/Plan: Recommendations for Xeroform gauze, ABD pad, and kerlix. Change every other day. Dressing applied. Education provided: Pt educated on dressing changes and pressure relief. Offloading surface/device: N/A Recommended Referrals/Tests: N/A Discharge Recommendations for dressings: Dressing instructions left in room. No other wounds noted. Pt in chair at this time and call light in reach. Wound care will follow up for reassessment on 03/12/19.
[2020-03-03] MEDS: REMDESIVIR 100mg in NORMAL SALINE 250ML X 4 DAYS IV SCH (17:13)
[2020-03-03] MEDS: BENZONATATE 100 MG CAPSULE. PO PRN (17:19)
[2020-03-03 19:00] VITALS: BP 138/71
[2020-03-03] MEDS: SIMVASTATIN 20 MG TABLET PO SCH (21:04)
[2020-03-03 23:00] VITALS: BP 152/71
[2020-03-04 03:00] VITALS: BP 146/62
[2020-03-04 07:19] VITALS: BP 153/72
[2020-03-04] MEDS: ASPIRIN CHEWABLE 81 MG TABLET. PO SCH (08:57)
[2020-03-04] MEDS: CHOLECALCIFEROL (VITAMIN D3) 5,000 UNIT CAPSULE PO SCH (08:57)
[2020-03-04] MEDS: ZINC SULFATE 220 MG CAPSULE. PO SCH (08:57)
[2020-03-04] MEDS: amLODIPine BESYLATE 10 MG TABLET PO SCH (08:58)
[2020-03-04] MEDS: CARVEDILOL 6.25 MG TABLET. PO SCH ×2 (08:58→17:05)
[2020-03-04] MEDS: BENZONATATE 100 MG CAPSULE. PO PRN (08:58)
[2020-03-04] MEDS: azaTHIOprine 50 MG TABLET PO SCH (08:58)
[2020-03-04] MEDS: ASCORBIC ACID 500 MG TABLET PO SCH (08:58)
[2020-03-04] MEDS: DEXAMETHASONE SOD PHOS 4 MG/ML VIAL IVP SCH (08:59)
[2020-03-04] MEDS: ENOXAPARIN 40 MG/0.4 ML SYRINGE. SQ SCH (09:00)
[2020-03-04] MEDS: TIMOLOL 0.5% OPHTH SOLUTION 5ML BOTTLE. OS SCH (09:00)
[2020-03-04] MEDS: DOXYCYCLINE HYCLATE 100 MG in IV DEXTROSE 5% 100ML 100 ML IV SCH ×2 (09:01→20:08)
[2020-03-04 11:16] VITALS: BP 157/73
--- NOTE | 2020-03-04 12:19 | PDOC ---
[facility] [facility] PROGRESS NOTE Date of Service DOS: DATE: 03/04/20 TIME: 12:18 Chief Complaint Chief Complaint Acute encephalopathy NOS Covid infection Acute hypoxic respiratory distressworsening Hyponatremia, Hypokalemia Myasthenia Gravis Moderate dementia Consider dementia prevention protocol Provide adequate lighting (open curtains during the day, turn the lights off at night) Provide frequent personal contact with family, friends, and staff or TV Encourage early and frequent mobilization Rehab screening ordered IV Haldol as needed for agitation, consider sitter as needed if non-redirectable agitation Avoid physical restraints, catheters or tubes, and benzodiazepines Nutrition consult if there is malnutrition or concern for vitamin deficiencies Pulmonology consult for Covid PNA Continue with math plus protocol, IV steroids, IV Remdesivir and IV steroids Lovenox for DVT prophylaxis Hospice consult ADA diet Full code Discussed with RN and SW Dispo inpatient management as above. Pending discussion with family regarding palliative care versus aggressive management of comorbidities. History of Present Illness History of Present Illness 02/24/2020 No major events overnight. Patient seen and examined bedside. Patient's clinical status is worsening. Patient's saturations 93% on 15 L nonrebreather. Will consult hospice and evaluate. Patient's chart, labs, images were reviewed and discussed with RN 03/03/2020 No major events overnight. Patient is now 100% nonrebreather saturating 95%. Patient is DNR status. T-max of 99.6 F overnight. Does not appear to be more dyspneic. Working with physical therapy and sitting upright on commode. Patient's chart, labs, images were reviewed and discussed with RN. Chest X showing worsening bilateral infiltrates. Lasix 40 mg IV given x1. 03/02/2020 No major events overnight. Patient saturating 93% on 4 L nasal cannula. No complaints voiced at this time. He is still refusing Lovenox injections. Patient's chart, labs, images were reviewed and discussed with RN. IV remdesivir initiated today 03/01/2020 No acute events overnight. Patient did have a fall during the day in which he states that he feels fine after that. There is no shoulder deformity and no x- ray was taken. Patient has no complaints voiced at this time. Patient does re fuse some treatments as he states that he he is not in control and that God makes all decisions for him at this time. I did speak with the patient's son about his current management and recent Covid diagnosis. They agree with resuming current care and patient is to remain on DNR/DNI status. Patient's chart, labs, images were reviewed and discussed with RN 02/29/2020 No acute events overnight. Patient saturating 95% on 4 L nasal cannula. Fever of T-max of 100.6 F. Currently on doxycycline. Pending Covid test. Patient is currently refusing medications as of now because he thinks he does not need any of them. He says his home medication regimen has been fine. Will address CODE STATUS with family. Patient's chart, labs, images were reviewed and disc ussed with RN 89-year-old male past medical history significant for LE swelling on lasix 40mg tid, COPD (former tobacco use), HTN, HLD, gerd, glaucoma, R eye blindness (s/p CRAO), OA, and myasthenia gravis (on azathioprine, dx 2016), presents to the ED brought in by EMS from home, concern for altered mental status. Patient lives with his son and [id number]. Son tested positive for Covid 11 days ago. Bkeyzghm-[id number]-jox is having Covid symptoms and was tested today, now awaiting results. Patient was saturating 90% on room air, required 3 L nasal cannula. Patient is alert to self, month, location but not year. Pt with no active complaints in ed. Hx limited due to mental status and hearing difficulties. EMS reports they were out at patient's house earlier in the day for an accidental fall in the bathroom, unsure if pt hit his head (found back propped up next to tub), w/superficial skin tears to left arm. Pt is a DNR code status. Vitals/I&O Vitals/I&O: Vital Signs Date Time Temp Pulse Resp B/P (MAP) Pulse Ox O2 Delivery O2 Flow Rate FiO2 03/04/20 11:16 97.7 75 28 157/73 (101) 95 NonRebreather Mask 15.0 97.7 I & O 03/03/20 03/03/20 03/04/20 14:59 22:59 06:59 Intake Total 240 ml 100 ml 100 ml Output Total 350 ml Balance -110 ml 100 ml 100 ml Physical Exam General: Alert, No acute distress Heart: Regular rate Labs Labs: Laboratory Tests Test 03/03/20 14:35 03/03/20 15:00 White Blood Count 12.8 x10^3/uL (4.0-11.0) Red Blood Count 4.19 x10^6/uL (4.30-5.70) Hemoglobin 12.2 g/dL (13.0-17.5) Hematocrit 37.1 % (39.0-53.0) Mean Corpuscular Volume 89 fL (79-100) Mean Corpuscular Hemoglobin 29 pg (25-35) Mean Corpuscular Hemoglobin Concent 33 g/dL (31-37) Red Cell Distribution Width 16.2 % (11.5-14.5) Platelet Count 199 x10^3/uL (140-400) Neutrophils (%) (Auto) 95 % (31-73) Lymphocytes (%) (Auto) 1 % (24-48) Monocytes (%) (Auto) 4 % (0-9) Eosinophils (%) (Auto) 0 % (0-3) Basophils (%) (Auto) 0 % (0-3) Neutrophils # (Auto) 12.1 x10^3/uL (1.8-7.7) Lymphocytes # (Auto) 0.1 x10^3/uL (1.0-4.8) Monocytes # (Auto) 0.6 x10^3/uL (0.0-1.1) Eosinophils # (Auto) 0.0 x10^3/uL (0.0-0.7) Basophils # (Auto) 0.0 x10^3/uL (0.0-0.2) Sodium Level 134 mmol/L (136-145) Potassium Level 3.5 mmol/L (3.5-5.1) Chloride Level 95 mmol/L (98-107) Carbon Dioxide Level 29 mmol/L (21-32) Anion Gap 10 (6-14) Blood Urea Nitrogen 19 mg/dL (8-26) Creatinine 0.8 mg/dL (0.7-1.3) Estimated GFR (Cockcroft-Gault) 91.2 Glucose Level 137 mg/dL (70-99) Calcium Level 8.7 mg/dL (8.5-10.1) Magnesium Level 2.5 mg/dL (1.8-2.4) Assessment and Plan Assessmemt and Plan Problems Medical Problems: (1) Acute respiratory failure with hypoxia Status: Acute (2) CAP (community acquired pneumonia) Status: Acute (3) Person under investigation for COVID-19 Status: Acute Comment Review of Relevant I have reviewed the following items massimo (where applicable) has been applied. Medications: Current Medications Medications (Trade) Dose Ordered Sig/Nicola Route PRN Reason Start Time Stop Time Status Last Admin Dose Admin Remdesivir 100 mg/ Sodium Chloride 230 ml @ 460 mls/hr Q24H IV 03/03/20 16:00 03/06/20 16:29 03/03/20 17:13 Justifications for Admission Other Justification Respiratory failure with hypoxia, COVID-19 PNA V[place] PETTIT MD Mar 04, 2020 12:19
--- NOTE | 2020-03-04 13:28 | NUR ---
SW following for discharge planning. Spoke with RN and reviewed chart. Spoke with Dr. Padron who would like pt to be evaluated for hospice if family is agreeable. Spoke with son who is POA for HC and he and his sister are agreeable. SW phoned and faxed referral to [facility] for GIP evaluation as family stated no preference in provider. Patient choice of vendor form completed. SW available as needed. Addendum: 03/05/20 at 0914 by DRAGAN HAMMOND SW pt . No additional SW needs.
--- NOTE | 2020-03-04 14:11 | NUR ---
Pt was offered a bed bath but is refusing at this time. He stated, "not today". Pt was encouraged but stated he "doesn't feel like it" and "I want to rest". Will continue to encourage.
--- NOTE | 2020-03-04 14:50 | NUR ---
Dr. Edwards on floor after seeing pt. Per Dr. Edwards, it is ok to not have IV access as he has poor venous access and pt does not want another IV. He also stated to stop the remdesivir. Dr. Edwards will change pt medications to PO.
[2020-03-04 15:17] VITALS: BP 162/71
--- NOTE | 2020-03-04 15:23 | PDOC ---
PULMONARY PROGRESS NOTES DATE: 03/04/20 TIME: 15:20 Subjective Patient upset, has poor IV access. Is not more short of air. Vitals Vital Signs Date Time Temp Pulse Resp B/P (MAP) Pulse Ox O2 Delivery O2 Flow Rate FiO2 03/04/20 11:16 97.7 75 28 157/73 (101) 95 NonRebreather Mask 15.0 97.7 Comments Pt. seen during pandemic visual exam preformed RRR 100% NRB obese No rash or edema No accessory muscle use Labs Laboratory Tests Test 03/03/20 14:35 03/03/20 15:00 White Blood Count 12.8 x10^3/uL (4.0-11.0) Red Blood Count 4.19 x10^6/uL (4.30-5.70) Hemoglobin 12.2 g/dL (13.0-17.5) Hematocrit 37.1 % (39.0-53.0) Mean Corpuscular Volume 89 fL (79-100) Mean Corpuscular Hemoglobin 29 pg (25-35) Mean Corpuscular Hemoglobin Concent 33 g/dL (31-37) Red Cell Distribution Width 16.2 % (11.5-14.5) Platelet Count 199 x10^3/uL (140-400) Neutrophils (%) (Auto) 95 % (31-73) Lymphocytes (%) (Auto) 1 % (24-48) Monocytes (%) (Auto) 4 % (0-9) Eosinophils (%) (Auto) 0 % (0-3) Basophils (%) (Auto) 0 % (0-3) Neutrophils # (Auto) 12.1 x10^3/uL (1.8-7.7) Lymphocytes # (Auto) 0.1 x10^3/uL (1.0-4.8) Monocytes # (Auto) 0.6 x10^3/uL (0.0-1.1) Eosinophils # (Auto) 0.0 x10^3/uL (0.0-0.7) Basophils # (Auto) 0.0 x10^3/uL (0.0-0.2) Sodium Level 134 mmol/L (136-145) Potassium Level 3.5 mmol/L (3.5-5.1) Chloride Level 95 mmol/L (98-107) Carbon Dioxide Level 29 mmol/L (21-32) Anion Gap 10 (6-14) Blood Urea Nitrogen 19 mg/dL (8-26) Creatinine 0.8 mg/dL (0.7-1.3) Estimated GFR (Cockcroft-Gault) 91.2 Glucose Level 137 mg/dL (70-99) Calcium Level 8.7 mg/dL (8.5-10.1) Magnesium Level 2.5 mg/dL (1.8-2.4) Medications Active Scripts Medications Dose Route/Sig Max Daily Dose Days Date Category Timoptic 0.5% (Timolol Maleate) 10 Ml Drops 1 Drop OS DAILY 30 02/28/20 Reported Spironolactone 100 Mg Tablet 0.5 Tab PO DAILY 02/28/20 Reported Simvastatin 20 Mg Tablet 1 Tab PO QHS 02/28/20 Reported Xalatan (Latanoprost) 2.5 Ml Drops 1 Drop EACHEYE QHS 02/28/20 Reported [place] 3 Fish Oil Softgel ([place]-3 Fatty Acids/Fish Oil) 1 Each Capsule.dr 1 Each PO DAILY 02/28/20 Reported Multi Vitamin Daily (Multivitamin) 1 Each Tablet 1 Tab PO DAILY 30 02/28/20 Reported Furosemide 40 Mg Tablet 3 Tab PO DAILY 02/28/20 Reported Carvedilol (Carvedilol) 6.25 Mg Tablet 6.25 Mg PO BIDWMEALS 02/28/20 Reported Brimonidine Tartrate 5 Ml Drops 1 Drop OS BID 02/28/20 Reported Imuran (Azathioprine) 50 Mg Tablet 3 Tab PO DAILY 30 02/28/20 Reported Aspirin 81 Mg Tab.chew 1 Tab PO DAILY 02/28/20 Reported Amlodipine Besylate 10 Mg Tablet 10 Mg PO DAILY 02/28/20 Reported Comments 03/03- CXR worsening Bilateral infiltrates Impression . IMPRESSION: 1. Acute hypoxic respiratory failure secondary to multifactorial etiologies including COVID-19 pneumonia. He lives with his son and [id number] and they are positive. Other differential diagnosis would include the possibility of congestive heart failure . Less likely underlying interstitial lung disease rela tameka to Methotrexate. 2. Abnormal CT chest with bilateral interstitial infiltrates and some ground glass infiltrates. This is nonspecific, but in the setting of COVID-19 infection, this could be all related to COVID. 3. No evidence of pulmonary embolism. 4. Questionable chronic obstructive pulmonary disease. 5. Morbid obesity, suspected obstructive sleep apnea and obesity hypoventilation syndrome. 6. COVID-19 positive Plan . Patient feels slightly better, decrease oxygen as tolerated Switch to oral medications. Discussed with family consumer scientist discussion on possible hospice. Follow CXR PRn, reviewed today worsening Bilateral infiltrates-- lasix X1 / suspect all due to COVID Continue Dexamethasone Continue full course of remdesivir, patient with no IV site. We will proceed with discontinuing remdesivir, Continue Doxycycline. The patient is currently on methotrexate. Possibility of methotrexate-induced interstitial lung disease less likely PT/OT DVT/GI PPX D/W RN and RT PT. is DNR JANEEN QUINTERO MD Mar 04, 2020 15:23
[2020-03-04] MEDS: REMDESIVIR 100mg in NORMAL SALINE 250ML X 4 DAYS IV SCH (16:00)
[2020-03-04 19:00] VITALS: BP 130/64
--- NOTE | 2020-03-05 00:15 | NUR ---
Pt assessed during the noc approximately 1944. Pt sitting in recliner with legs down. Pt states "so glad to see you guys and happy you are taking care of me tonight". Thanked pt and informed of deep breathing and relaxing tonight. Pt verbalized understanding. Pt O2 saturation above 95%. Pt currently on nonrebreather 15L and nasal cannula 5L to keep saturations above 90%. However after leaving room and attempting to get medications ready. Informed from Charge Nurse of pt rhythm currently Vfib/Vtach on monitor. Entered room immediately and noted pt sitting in recliner however not responding. Pt currently no HR noted after listening however pt still Vfib on monitor. Continued to stay with pt until Asystole noted. Pt transferred back to bed with goyo lift and assist x3. Pt cleansed and linens changed for possible visitors. Pt pronounced by 2 Nurses 03/04/20 at 2039. Called son Jaciel however no one able to come see pt since family 85 miles away. Attempted to get information however son states they do not know at this time. Son called back later and states still do not know however will notify someone in am. Informed to call Security or if unable able to call this floor and will get information to the right person. Son verbalized understanding and appreciated staff for the care of his father. No more questions or concerns at this time. Informed to call with questions.
== END 2020-03-04 20:40 | DRG 177 ==
LOC: ER 00:05 → ED HOLD 03:57 → 6 SOUTH 08:33
PROVIDERS: ADMIT Family Medicine; ATTEND Family Medicine
PROC: XW033E5 Introduction of Remdesivir Anti-infective into Peripheral Vein, Percutaneous Approach, New Technology Group 5 (ICD-10-PCS; principal; 2020-03-02)
DX: U07.1 COVID-19 (principal); J96.01 Acute respiratory failure with hypoxia; J12.89 Other viral pneumonia; E87.1 Hypo-osmolality and hyponatremia; G93.40 Encephalopathy, unspecified; J44.0 Chronic obstructive pulmonary disease with (acute) lower respiratory infection; Z68.42 Body mass index [BMI] 45.0-49.9, adult; K21.9 Gastro-esophageal reflux disease without esophagitis; M19.90 Unspecified osteoarthritis, unspecified site; E78.5 Hyperlipidemia, unspecified; H54.61 Unqualified visual loss, right eye, normal vision left eye; Z66 Do not resuscitate; E66.01 Morbid (severe) obesity due to excess calories; E87.6 Hypokalemia; F03.90 Unspecified dementia, unspecified severity, without behavioral disturbance, psychotic disturbance, mood disturbance, and anxiety; G70.00 Myasthenia gravis without (acute) exacerbation; I11.0 Hypertensive heart disease with heart failure; I50.9 Heart failure, unspecified; I25.10 Atherosclerotic heart disease of native coronary artery without angina pectoris; I71.2 Thoracic aortic aneurysm, without rupture; W19.XXXA Unspecified fall, initial encounter; Y93.89 Activity, other specified; Y92.091 Bathroom in other non-institutional residence as the place of occurrence of the external cause; Y99.8 Other external cause status; Z93.1 Gastrostomy status; Z87.891 Personal history of nicotine dependence
CPT/HCPCS: 36415; 36600; 70450; 71045; 71275; 80048; 80053; 82550; 82805; 82962; 83605; 83735; 83880; 84100; 84484; 85007; 85025; 85379; 85610; 85730; 87040; 87804; 90471; 90715; 93005; 96361; 96365; 96375; J0456; J0696; J1100; J1650; J1940; J2270; J3490; J7030; J7050; J7060; J7500; Q9967; U0003; 97530-GP; 97535-GO; 99285-25; G0378